=== PATIENT | female | born 1940 | race Hispanic/Latino ===

== ENCOUNTER 2018-05-11 17:28 | Inpatient (IN) | payer MEDICARE ==
[~2018-05-11] VITALS: Ht 165.1 cm; Wt 80.3 kg
[2018-05-11 20:27] LABS: BASOPHILS # (AUTO) 0.1 (0.0-0.1); BASOPHILS % 0.7 % (0.0-1.0); EOSINOPHILS # (AUTO) 0.1 (0.0-0.4); EOSINOPHILS % 1.2 % (0.0-6.0); HEMATOCRIT 34.2 % (34.2-44.1); HEMOGLOBIN 11.7 g/dL (12.0-16.0); LYMPHOCYTES # (AUTO) 2.1 (1.0-3.2); LYMPHOCYTES % 21.1 % (18.0-39.1); MEAN CORPUSCULAR HEMOGLOBIN 30.8 pg (28-32); MEAN CORPUSCULAR HGB CONC 34.2 g/dL (31-35); MONOCYTES # (AUTO) 0.6 (0.2-0.8); MONOCYTES % 6.2 % (4.4-11.3); NEUTROPHILS # (AUTO) 6.9 (2.1-6.9); NEUTROPHILS % 70.3 % (38.7-80.0); PLATELET COUNT 240 x10e3/uL (140-360); RED CELL DISTRIBUTION WIDTH 12.2 % (11.7-14.4)
[2018-05-11 20:29] LABS: BILIRUBIN,URINE NEGATIVE (NEGATIVE); CLARITY,URINE CLEAR (CLEAR); COLOR,URINE YELLOW (YELLOW); KETONES,URINE NEGATIVE (NEGATIVE); LEUKOCYTE ESTERASE ,URINE 1+ (NEGATIVE); NITRITE,URINE POSITIVE (NEGATIVE); PROTEIN,URINE DIPSTICK NEGATIVE (NEGATIVE); URINE UROBILINOGEN 0.2 mg/dL (0.2 - 1)
[2018-05-11 20:37] LABS: INR 1.03; PARTIAL THROMBOPLASTIN TIME 27.9 seconds (23.8-35.5); PROTHROMBIN TIME 12.7 seconds (11.9-14.5)
[2018-05-11 20:45] LABS: BACTERIA,URINE MANY /HPF; EPITHELIAL CELLS,URINE FEW /LPF; MUCUS,URINE FEW (RARE); RBC,URINE 0-5 /HPF (0-5)
[2018-05-11 20:46] LABS: ALBUMIN 3.8 g/dL (3.5-5.0); ALBUMIN/GLOBULIN RATIO 1.2 (0.8-2.0); ANION GAP 16.2 mmol/L (8-16); CALCIUM 10.3 mg/dL (8.4-10.2); CREATININE, SERUM 1.33 mg/dL (0.57-1.11)
[2018-05-11 20:49] LABS: POTASSIUM 5.2 mmol/L (3.5-5.1)
[2018-05-11] MEDS ORDERED: SODIUM CHLORIDE 0.9% 1000ML 1,000 ML IV STA (20:52)
[2018-05-11 20:53] LABS: CREATINE KINASE MB 2.6 ng/mL (0-5.0)
[2018-05-11] MEDS ORDERED: INSULIN REGULAR, HUMAN 100 UNIT/1 ML 3ML VIAL SQ ONE (21:00)
[2018-05-11] MEDS ORDERED: HEPARIN SOD (PORCINE) 5,000 UNIT/ML VIAL IV ONE ×2 (22:00→22:15)
[2018-05-11] MEDS ORDERED: LOSARTAN-HCTZ1 EAC1 PO (22:04)
[2018-05-11] MEDS ORDERED: METOPROLOL SUC100 MG PO (22:04)
[2018-05-11] MEDS ORDERED: LANTUS 3ML100 UNITS/ SC (22:04)
[2018-05-11] MEDS ORDERED: METFORMIN HCL500 MG PO (22:04)
[2018-05-11] MEDS ORDERED: GLIPIZIDE ER10 MG PO (22:04)
[2018-05-11] MEDS ORDERED: HEPARIN 25,000U/0.45% NS 250ML 250 ML ONE (22:14)
[2018-05-11] MEDS ORDERED: DEXTROSE 50% SYRINGE 50 ML IV PRN (22:15)
[2018-05-11] MEDS ORDERED: ONDANSETRON HCL INJ 2 MG/ML VIAL IV PRN (22:15)
[2018-05-11] MEDS: CEFTRIAXONE SOD 1 GM VIAL IV SCH (22:19)
[2018-05-11] MEDS: HEPARIN 25,000U/0.45% NS 250ML 1,100 UNIT in SODIUM CHLORIDE 0.9% 250ML 0 ML IV SCH (22:19)
[2018-05-11] MEDS: SODIUM CHLORIDE 0.9% 1000ML 1,000 ML IV SCH (23:41)
[2018-05-12] VITALS (7 sets, daily range): BP systolic 140–178; BP diastolic 72–108
[2018-05-12 04:00] LABS: BASOPHILS # (AUTO) 0.1 (0.0-0.1); BASOPHILS % 0.6 % (0.0-1.0); EOSINOPHILS # (AUTO) 0.2 (0.0-0.4); EOSINOPHILS % 2.1 % (0.0-6.0); HEMATOCRIT 29.4 % (34.2-44.1); LYMPHOCYTES # (AUTO) 2.4 (1.0-3.2); MEAN CORPUSCULAR HEMOGLOBIN 30.6 pg (28-32); MEAN CORPUSCULAR VOLUME 89.9 fL (81-99); MONOCYTES # (AUTO) 0.6 (0.2-0.8); MONOCYTES % 6.6 % (4.4-11.3); NEUTROPHILS # (AUTO) 5.5 (2.1-6.9); NEUTROPHILS % 63.4 % (38.7-80.0); PLATELET COUNT 198 x10e3/uL (140-360); RED BLOOD COUNT 3.27 x10e6/uL (3.6-5.1); RED CELL DISTRIBUTION WIDTH 12.2 % (11.7-14.4)
[2018-05-12 04:15] LABS: ALBUMIN/GLOBULIN RATIO 1.2 (0.8-2.0); ANION GAP 11.2 mmol/L (8-16); CALCIUM 9.4 mg/dL (8.4-10.2); CREATININE, SERUM 0.98 mg/dL (0.57-1.11); POTASSIUM 4.2 mmol/L (3.5-5.1)
[2018-05-12] MEDS: INSULIN REGULAR, HUMAN 100 UNIT/1 ML 3ML VIAL SQ SCH ×4 (08:13→21:00)
[2018-05-12] MEDS: SODIUM CHLORIDE 0.9% 1000ML 1,000 ML IV SCH ×2 (09:43→20:25)
[2018-05-12] MEDS ORDERED: HYDRALAZINE HCL 20 MG/ML VIAL IV PRN (12:15)
[2018-05-12] MEDS ORDERED: ONDANSETRON HCL INJ 2 MG/ML VIAL IV PRN (12:45)
--- NOTE | 2018-05-12 16:35 | History and Physical ---
CHIEF COMPLAINT: Right foot pain and cold sensation. HISTORY OF PRESENT ILLNESS: A 78-year-old female with past medical history of type 2 diabetes, uncontrolled and hypertension who presents to the ED with complaints of a one month history of right lower foot pain with numbness and cold sensation. Patient reports this has been ongoing for the last one month, but yesterday she was severe pain, began to dry and came into the ED for further evaluation. Patient denies any history of any smoking in the past. She denies any history of atrial fibrillation as well. Patient also has been having some increased polydipsia and polyuria at home and has been having uncontrolled type 2 diabetes. The patient is very noncompliant with her insulin as well. Patient has never experienced any kind of right lower extremity pain like this in the past. Patient seen and evaluated at bedside on the medical floor in the ER, currently doing well with no other complaints. She is currently on heparin drip. Cardiology has been consulted for possibly lower extremity angiogram for further intervention. REVIEW OF SYSTEMS: Pertinent positives: Right lower extremity foot pain with cold sensation and numbness. Polydipsia and urinary frequency. Pertinent negatives: Denies any chest pain, palpitations, nausea, vomiting, diarrhea, dysuria, hematuria, frequency, urgency, lightheadedness, dizziness, abdominal pain, headache, shortness of breath, fever, cough, congestion or any other complaints. The rest of 14 point review of systems is reviewed with the patient and are negative. ALLERGIES: SITAGLIPTIN. HOME MEDICATIONS: Metformin 1 tab p.o. b.i.d., glipizide 1 tab p.o. b.i.d., losartan/hydrochlorothiazide 100/25 mg 1 tab q. daily. Lantus 15 units subcutaneously daily, metoprolol XL 100 mg daily. PAST MEDICAL HISTORY: Type 2 diabetes, hypertension, morbidly obese. PAST SURGICAL HISTORY: Reports none. FAMILY HISTORY: Hypertension and diabetes. SOCIAL HISTORY: No drugs, no alcohol and does not smoke. Lives with daughter. No other issues. PHYSICAL EXAM: VITAL SIGNS: Temperature is 98.4, pulse 79, respiratory rate 18, blood pressure 139/66, pulse ox 99% on room air. GENERAL: Not in acute distress, alert and oriented times 3, cooperative on examination. HEENT: Head is normocephalic, atraumatic. Eyes: Pupils are equal and reactive to light bilaterally. Extraocular movements intact bilaterally. NECK: Supple with good range of motion throughout. No evidence of any erythema or exudate in the posterior pharynx. Has poor dentition. PULMONARY: Clear to auscultation bilaterally. No wheezing, no rales and no rhonchi appreciated. CARDIOVASCULAR: Positive S1 and S2, no murmurs, rubs or gallops appreciated. ABDOMEN: Soft, nondistended and nontender to palpation. Bowel sounds present. MUSCULOSKELETAL: Strength is 5/5 throughout. No visible edema on examination and no weakness appreciated. NEUROLOGIC: Cranial nerves II-XII grossly intact. No evidence of any neurologic deficits on exam. SKIN: Intact. Warm to touch. Good cap refill. PSYCHIATRIC: Normal affect and mood. EXTREMITIES: The right lower extremity has some cold sensation to the right foot. Dorsalis pedis pulses seem to be much decreased, but currently she complains of very little pain to the right foot. LABORATORY DATA: Lab findings show white count of 8.7, hemoglobin of 10, hematocrit 29, platelets of 198,000. Coagulation PT 12, INR 1, PTT 27.9. Chemistry: Sodium 139, potassium 4.2, chloride 107, bicarb 25, anion gap of 11. BUN is 13. Creatinine 0.9. Glucose on admission was 434 and now 163. Calcium is 9.4, bilirubin 0.6. AST 12, ALT 7. Alkaline phosphorus 105. Troponin was negative. Total protein 5.5. Albumin is 3. Urinalysis showed many bacteria, 11 to 20 WBCs and positive nitrates. MICROBIOLOGY: None. IMAGING STUDIES: Lower extremity venous Doppler and lower extremity arterial Doppler are pending, review by cardiology. ASSESSMENT AND PLAN: 1. Right foot numbness with cold sensation, concern for arterial clot.-venous and arterial Dopplers are pending, heparin drip, cardiology consulted. Patient will likely need lower extremity angiogram, possibly intervention for further evaluation of her arterial clot. It seems that the patient has more of an arterial clot than an actual venous clot based on the symptoms and the chief complaint the patient has. 1. Urinary tract infection: Continue with IV Rocephin. Urine culture was not sent to the lab. Will discuss with nursing staff. 2. Uncontrolled type 2 diabetes: Get an A1c common, insulin sliding scale, put on Lantus 10 units subcutaneously at bedtime. 3. Hypertension. Currently her blood pressure is stable at 139/66. Continue with same home medications, p.r.n. hydralazine. 4. Prophylaxis, heparin drip. 5. Fluids, electrolytes and nutrients: No IV fluids indicated. Diabetic diet. DISPOSITION: Inpatient. Cardiology consulted for evaluation of the lower extremity, possibly needing angiogram. Job#: [id number] GH
[2018-05-12] MEDS ORDERED: INSULIN DETEMIR 100 UNIT/ML PEN SQ SCH (21:00)
[2018-05-12] MEDS: CEFTRIAXONE SOD 1 GM VIAL IV SCH (21:18)
--- NOTE | 2018-05-12 23:13 | Consultation ---
DATE OF CONSULTATION: May 12, 2018 CARDIOLOGY CONSULTATION REQUESTING PHYSICIAN: Dr. Valdivia. REASON FOR CONSULTATION: Peripheral arterial disease. HISTORY OF PRESENT ILLNESS: This is a 78-year-old woman with history of diabetes mellitus, hypertension, and chronic kidney disease who presents with right lower extremity pain. The patient reports she has been having pain in her right lower extremity for the last month, with worsening in the last few weeks. She endorses symptoms of claudication in her right leg with cramping in her calf with ambulation of approximately 20 feet. Due to pain and discoloration in her right foot, patient presented to [facility] ER for further evaluation. She denied any chest pain, shortness of breath, palpitations, orthopnea, or PND. REVIEW OF SYSTEMS: Negative except as per HPI. PAST MEDICAL HISTORY 1. Diabetes mellitus, uncontrolled. 2. Hypertension. 3. Chronic kidney disease. PAST SURGICAL HISTORY: Denies. ALLERGIES: PLEASE SEE EMR. MEDICATIONS: Please see medication list. SOCIAL HISTORY: Denies tobacco, alcohol, or illicit drugs. FAMILY HISTORY: Noncontributory. PHYSICAL EXAMINATION VITAL SIGNS: Temperature 98.8 degrees, pulse 79, respiratory rate 16, blood pressure 164/72, and oxygen saturation 94% on room air. GENERAL: Obese woman, well developed, well nourished, in no acute distress. HEENT: Normocephalic, atraumatic. Pupils equal, no scleral icterus. NECK: Supple. No thyromegaly or cervical lymphadenopathy. No carotid bruits. LUNGS: Clear to auscultation bilaterally. No wheezes or crackles. CARDIOVASCULAR: Normal rate, regular rhythm. No murmur. Normal S1 and S2. ABDOMEN: Soft, nontender. EXTREMITIES: No edema. Cool to palpation in the toes of the right foot with discoloration noted of the plantar surface of the right foot. NEURO: Nonfocal exam. LABS: WBC 8.7, hemoglobin 10, hematocrit 29.4, and platelets 198,000. Sodium 139, potassium 4.2, chloride 107, CO2 of 25, BUN 32, and creatinine 0.98. IMPRESSIONS 1. Chronic limb ischemia of the right lower extremity. 2. Peripheral arterial disease suggested by noninvasive Doppler evaluation. 3. Diabetes mellitus. 4. Hypertension, uncontrolled. 5. Wwstl-ig-varcezi kidney disease. 6. Abnormal urinalysis suggestive of urinary tract infection. RECOMMENDATIONS: Agree with heparin drip. Continue current cardiac medications. Patient will need peripheral angiogram for further evaluation of her right lower extremity; however, given patient's chronic kidney disease, patient will need renal consultation and discussion of the risk of contrast-induced nephropathy prior to proceeding. I recommended nephrology input. Antibiotics per primary service. Frequent vascular checks in the meantime. Thank you for this consult. We will continue to follow. Job#: [id number] CF MTDTrace
[2018-05-13] VITALS (7 sets, daily range): BP systolic 122–140; BP diastolic 57–65
[2018-05-13] MEDS: ACETAMINOPHEN 325 MG TAB PO PRN ×2 (00:33→23:15)
[2018-05-13] MEDS ORDERED: HEPARIN 25,000U/0.45% NS 250ML 250 ML ONE (01:45)
[2018-05-13] MEDS: HEPARIN 25,000U/0.45% NS 250ML 1,100 UNIT in SODIUM CHLORIDE 0.9% 250ML 0 ML IV SCH ×2 (01:50→22:15)
[2018-05-13] MEDS: SODIUM CHLORIDE 0.9% 1000ML 1,000 ML IV SCH (04:32)
[2018-05-13 06:11] LABS: BASOPHILS # (AUTO) 0.1 (0.0-0.1); BASOPHILS % 0.6 % (0.0-1.0); EOSINOPHILS # (AUTO) 0.2 (0.0-0.4); HEMATOCRIT 28.4 % (34.2-44.1); HEMOGLOBIN 9.5 g/dL (12.0-16.0); LYMPHOCYTES # (AUTO) 2.3 (1.0-3.2); LYMPHOCYTES % 25.2 % (18.0-39.1); MEAN CORPUSCULAR HGB CONC 33.5 g/dL (31-35); MEAN CORPUSCULAR VOLUME 92.8 fL (81-99); MONOCYTES # (AUTO) 0.6 (0.2-0.8); MONOCYTES % 6.4 % (4.4-11.3); NEUTROPHILS # (AUTO) 5.8 (2.1-6.9); NEUTROPHILS % 65.2 % (38.7-80.0); PLATELET COUNT 202 x10e3/uL (140-360); RED BLOOD COUNT 3.06 x10e6/uL (3.6-5.1); RED CELL DISTRIBUTION WIDTH 12.4 % (11.7-14.4)
[2018-05-13 06:32] LABS: ANION GAP 11.2 mmol/L (8-16); BLOOD UREA NITROGEN 21 mg/dL (7-26); BUN/CREATININE RATIO 25 (6-25); CALCIUM 8.8 mg/dL (8.4-10.2); CARBON DIOXIDE 23 mmol/L (22-29); CHLORIDE 107 mmol/L (98-107); CREATININE, SERUM 0.84 mg/dL (0.57-1.11); EST GLOMERULAR FILTRATION RATE > 60 ML/MIN (60-); GLUCOSE 171 mg/dL (74-118); POTASSIUM 4.2 mmol/L (3.5-5.1); SODIUM 137 mmol/L (136-145)
[2018-05-13] MEDS: INSULIN REGULAR, HUMAN 100 UNIT/1 ML 3ML VIAL SQ SCH ×4 (08:00→21:50)
[2018-05-13] MEDS: TOPROL PO SCH (08:32)
[2018-05-13] MEDS: INSULIN DETEMIR 100 UNIT/ML PEN SQ SCH ×2 (11:00→21:51)
--- NOTE | 2018-05-13 16:54 | Progress Note ---
DATE: May 13, 2018 CARDIOLOGY PROGRESS NOTE SUBJECTIVE: The patient denies chest pain or shortness of breath. She denies any pain in her right foot. OBJECTIVE VITAL SIGNS: Temperature 98 degrees, pulse 95, respiratory rate 20, blood pressure 140/59, oxygen saturation 96%. GENERAL: An elderly woman in no acute distress, awake and alert. LUNGS: Clear to auscultation bilaterally. No wheezes or crackles. CARDIOVASCULAR: Normal rate, regular rhythm. No murmur. Normal S1 and S2. ABDOMEN: Soft, nontender. EXTREMITIES: No edema. Discoloration noted on the toes as well as plantar surface of the right foot. Pulses are dopplerable. CARDIAC MEDICATIONS: 1. Metoprolol succinate 100 mg p.o. daily. 2. Heparin drip. LABS: WBC 8.94, hemoglobin 9.5, hematocrit 28.4, platelets 202,000, sodium 137, potassium 4.2, chloride 107, CO2 of 23, BUN 21, creatinine 0.84. TELEMETRY: Normal sinus rhythm. IMPRESSION 1. Chronic limb ischemia of the right lower extremity. 2. Peripheral arterial disease suggested by noninvasive Doppler evaluation. 3. Diabetes mellitus. 4. Hypertension, improved. 5. Cfmqz-zu-fgpfhoe kidney disease, improved. 6. Abnormal urinalysis suggestive of urinary tract infection. RECOMMENDATIONS: Continued heparin drip. Add low-dose aspirin. Continue current cardiac medication otherwise. Plan for peripheral angiogram in the morning. Extensive discussion was held with the patient and her daughter at bedside regarding the risks and benefits of peripheral angiogram including risk of contrast-induced nephropathy. Antibiotics per primary service. Continue frequent vascular checks. Thank you for this consult. We will continue to follow. Job#: [id number] WALLY
[2018-05-13] MEDS: CEFTRIAXONE SOD 1 GM VIAL IV SCH (21:53)
[2018-05-14] VITALS (11 sets, daily range): BP systolic 128–161; BP diastolic 60–90
[2018-05-14] MEDS: SODIUM CHLORIDE 0.9% 1000ML 1,000 ML IV SCH ×3 (03:35→18:57)
[2018-05-14 04:53] LABS: BASOPHILS # (AUTO) 0.1 (0.0-0.1); BASOPHILS % 0.8 % (0.0-1.0); EOSINOPHILS # (AUTO) 0.2 (0.0-0.4); EOSINOPHILS % 2.6 % (0.0-6.0); HEMATOCRIT 28.9 % (34.2-44.1); HEMOGLOBIN 9.7 g/dL (12.0-16.0); LYMPHOCYTES # (AUTO) 2.2 (1.0-3.2); LYMPHOCYTES % 25.2 % (18.0-39.1); MEAN CORPUSCULAR HEMOGLOBIN 30.9 pg (28-32); MEAN CORPUSCULAR HGB CONC 33.6 g/dL (31-35); MONOCYTES # (AUTO) 0.6 (0.2-0.8); NEUTROPHILS # (AUTO) 5.6 (2.1-6.9); NEUTROPHILS % 63.6 % (38.7-80.0); PLATELET COUNT 202 x10e3/uL (140-360); RED BLOOD COUNT 3.14 x10e6/uL (3.6-5.1); RED CELL DISTRIBUTION WIDTH 12.5 % (11.7-14.4)
[2018-05-14 05:12] LABS: ANION GAP 11.2 mmol/L (8-16); BLOOD UREA NITROGEN 18 mg/dL (7-26); BUN/CREATININE RATIO 21 (6-25); CALCIUM 8.9 mg/dL (8.4-10.2); CARBON DIOXIDE 21 mmol/L (22-29); CHLORIDE 110 mmol/L (98-107); CREATININE, SERUM 0.86 mg/dL (0.57-1.11); EST GLOMERULAR FILTRATION RATE > 60 ML/MIN (60-); GLUCOSE 251 mg/dL (74-118); POTASSIUM 4.2 mmol/L (3.5-5.1); SODIUM 138 mmol/L (136-145)
[2018-05-14] MEDS: INSULIN REGULAR, HUMAN 100 UNIT/1 ML 3ML VIAL SQ SCH ×4 (07:30→21:00)
[2018-05-14] MEDS: TOPROL PO SCH (08:45)
[2018-05-14] MEDS: ASPIRIN 81 MG ENTERIC COATED PO SCH (08:45)
[2018-05-14] MEDS: INSULIN DETEMIR 100 UNIT/ML PEN SQ SCH ×2 (08:47→21:59)
[2018-05-14] MEDS ORDERED: FENTANYL CITRATE/PF 100MCG/2 ML INJ ONE (13:53)
[2018-05-14] MEDS ORDERED: MIDAZOLAM HCL 2 MG/2 ML VIAL ONE (13:53)
[2018-05-14] MEDS ORDERED: LIDOCAINE HCL 2% LOCAL 20 ML VIAL ONE (13:53)
[2018-05-14] MEDS ORDERED: SODIUM CHLORIDE 0.9% 1000ML 1,000 ML ONE ×2 (13:54→14:53)
[2018-05-14] MEDS ORDERED: IOPAMIDOL 300MG/ML 100 ML INFUS..BTL IV ONE (13:54)
[2018-05-14] MEDS ORDERED: HEPARIN SOD/SOD CHLORIDE 2,000 ML ONE (13:56)
[2018-05-14] MEDS ORDERED: HEPARIN SOD (PORCINE) 1000 UNIT/ML 30ML ONE (14:40)
[2018-05-14] MEDS ORDERED: NITROGLYCERIN/D5W 200 MCG/ML 250 ML ONE (14:53)
[2018-05-14] MEDS ORDERED: VERAPAMIL HCL 2.5 MG/ML 2 ML VIAL ONE (14:54)
[2018-05-14] MEDS ORDERED: CLOPIDOGREL BISULFATE 75 MG TAB ONE (15:51)
[2018-05-14] MEDS ORDERED: ASPIRIN 325 MG TAB ONE (15:51)
[2018-05-14] MEDS ORDERED: ONDANSETRON HCL INJ 2 MG/ML VIAL ONE (16:35)
--- NOTE | 2018-05-14 17:53 | Progress Note ---
DATE: May 14, 2018 CARDIOLOGY PROGRESS NOTE SUBJECTIVE: Patient underwent peripheral angiography and intervention to her right distal SFA by me earlier today. OBJECTIVE VITAL SIGNS: Temperature 98.4, pulse 64, respiratory rate 18, blood pressure 128/60, saturating 100% on room air. GENERAL: Elderly female, well developed. CARDIOVASCULAR: Regular rate and rhythm. No murmur, rubs, or gallops. Palpable carotid pulses. Palpable radial pulses. Palpable femoral pulses. Postprocedure, she has a bounding palpable right dorsalis pedis pulse and a faint, but palpable left dorsalis pedis pulse. LUNGS: No respiratory distress. Clear to auscultation bilaterally. ABDOMEN: Soft, nontender, nondistended. NEURO AND PSYCH: Alert and oriented to person, place, and time. Normal affect. MEDICATIONS: Reviewed. LABORATORY DATA: Reviewed. IMAGING FINDINGS: Reviewed. Please see my procedure report for her peripheral angiography and intervention done today for details. TELEMETRY DATA: Reviewed, notable for normal sinus rhythm. ASSESSMENT 1. Critical limb ischemia. 2. Peripheral arterial disease. 3. Diabetes. 4. Hypertension. 5. Hwzva-em-sfypmwj acute kidney injury on chronic kidney disease. 6. Urinary tract infection. RECOMMENDATIONS: Successful BELLY DANCER of her right SFA. Okay to discontinue heparin. Continue aspirin 81 mg daily for life and Plavix 75 mg daily for 6 weeks. Continue optimal medical therapy and risk factor control. If there are no complications overnight, patient is okay to be discharged in the morning from cardiovascular standpoint. Patient is to follow up with me in clinic in 2 weeks. Thank you for this consult. We will continue to follow. Job#: [id number] DEONDRE
--- NOTE | 2018-05-14 19:55 | Operative Report ---
DATE OF PROCEDURE: May 14, 2018 PROCEDURE: Cardiac catheterization. INDICATIONS: Critical limb ischemia and rest pain. PRE-SEDATION ASSESSMENT: Medical history, social history and previous experience with anesthesia were viewed as documented in the preoperative medical record. Results of relevant diagnostic studies were reviewed. Plan, choice of anesthesia, risks, complications, benefits and alternatives discussed. Patient deemed appropriate candidate for planned choice of anesthesia. CONSENT: The benefits, risks, complications and alternatives to the procedure were discussed with the patient and informed consent was obtained from the patient and her daughter prior to the procedure. MEDICATIONS: Please see nursing notes for medications administered during the procedure. PROCEDURE: The patient was brought to the cardiac catheterization laboratory in a fasting state. Left groin was prepped and draped in a sterile fashion and 1% lidocaine was used to infiltrate the left groin over the left common femoral artery. A 6-[place] Citizen sheath was placed in the left common femoral artery using ultrasound guidance and micropuncture needle. Using the modified Seldinger technique, abdominal aortogram was performed using a 5-[place] Citizen Omni flush catheter placed in the distal abdominal aorta below the renal arteries. A Buckeye Advantage wire was then used to go up and over into the contralateral iliac artery and an Omni flush catheter was advanced over the Buckeye Advantage wire into the distal common femoral artery on the contralateral side. Wire was removed and peripheral angiography of the right lower extremity was performed with digital subtraction and runoff as needed to visualize the lesion. The following lesions were deemed appropriate for intervention: A 90% heavily calcified lesion of the distal SFA and popliteal. For intervention of the above lesion, a Buckeye Advantage wire was advanced to the contralateral side through the Omni flush catheter previously placed in the SFA. The Omni flush catheter was removed and the 6-[place] Citizen short sheath was exchanged for a 45 cm Destination sheath which was placed into the contralateral external iliac artery using a 0.035 inch Seeker support catheter and 0.035 inch Buckeye Advantage wire. We were able to cross the lesion successfully. We then performed angiography of the right lower extremity below the knee to visualize the outflow beyond the lesion. The patient had a good 1 vessel runoff of the AT all the way to the toes. Decision was made to proceed with atherectomy and drug coated balloon treatment of the SFA popliteal lesion. A 0.014 inch Whisper wire was placed in the anterior tibial artery all the way above the level of the ankle. Using 0.014 inch Seeker catheter, we exchanged the Whisper wire for wiper wire. Atherectomy of the distal SFA lesion was performed using 1.5 solid bur CSI device. INTERNIST of the SFA lesion was performed using a Lutonix 5 x 40 mm balloon at 4 atmospheres, deployed for 3 minutes. This provided an excellent result with palpable pedal pulse on the left lower extremity and a brisk 1 vessel runoff to the toes. The Destination sheath was exchanged for short 6-[place] Citizen sheath using the regular J wire. Peripheral angiogram with runoff of the left lower extremity was performed by injecting contrast through the 6-[place] Citizen short sheath. The arteriotomy was closed with Provide vascular closure device. There were no immediate complications. Patient tolerated the procedure well. Estimated blood loss approximately 50 mL FINDINGS: Right common iliac artery with luminal irregularities only. Right external iliac artery no significant PAD. Right common femoral artery with no significant PAD. Right superficial femoral artery, the proximal portion with luminal irregularities only. There is 90% heavily calcified lesion of the distal right SFA going into the P1 segment of the right popliteal artery. Right anterior tibial is a large vessel. It is patent with some mild to moderate plaquing only all the way to the foot. Right tibial peroneal trunk is no significant PAD. The right posterior tibial artery is COAT FITTER in the proximal portion. Right peroneal artery is COAT FITTER in the proximal portion with AV fistulization into the venous system at the level of mid calf. The left common iliac artery with no significant PAD. Left external iliac artery no significant PAD. The left common femoral artery with no significant PAD. The left SFA superficial femoral artery with mild to moderate diffuse plaquing and heavy calcification. Left popliteal artery with mild to moderate plaquing. Left anterior tibial artery patent in the proximal portion. Distal runoff not well visualized. The left TP trunk no significant PAD. The left posterior tibial artery COAT FITTER in the proximal portion. Left peroneal artery COAT FITTER in the proximal portion. COMPLICATIONS: None. SPECIMEN REMOVED: None. IMPLANTS: Provide vascular closure. ESTIMATED BLOOD LOSS: 50 mL. RECOMMENDATIONS: 1. Unusual post PCI care with 6 hours of bedrest. 2. Continue optimal medical therapy and aspirin 81 mg daily for life. Plavix 75 mg daily for 6 weeks after the procedure. 3. Call the office for followup in 2 weeks post procedure. Job#: [id number] GH
[2018-05-14] MEDS ORDERED: ACETAMINOPHEN 325 MG/10 ML UDC PO PRN (20:15)
[2018-05-14] MEDS: CEFTRIAXONE SOD 1 GM VIAL IV SCH (21:58)
[2018-05-15] VITALS (7 sets, daily range): BP systolic 105–152; BP diastolic 51–72
[2018-05-15] MEDS: SODIUM CHLORIDE 0.9% 1000ML 1,000 ML IV SCH ×4 (03:51→23:12)
[2018-05-15 04:45] LABS: BASOPHILS # (AUTO) 0.1 (0.0-0.1); BASOPHILS % 0.6 % (0.0-1.0); EOSINOPHILS # (AUTO) 0.1 (0.0-0.4); EOSINOPHILS % 1.3 % (0.0-6.0); HEMATOCRIT 27.1 % (34.2-44.1); MEAN CORPUSCULAR HEMOGLOBIN 30.7 pg (28-32); MEAN CORPUSCULAR HGB CONC 33.2 g/dL (31-35); MEAN CORPUSCULAR VOLUME 92.5 fL (81-99); MONOCYTES # (AUTO) 0.9 (0.2-0.8); MONOCYTES % 8.3 % (4.4-11.3); NEUTROPHILS # (AUTO) 7.3 (2.1-6.9); NEUTROPHILS % 70.1 % (38.7-80.0); PLATELET COUNT 200 x10e3/uL (140-360); RED BLOOD COUNT 2.93 x10e6/uL (3.6-5.1); RED CELL DISTRIBUTION WIDTH 12.5 % (11.7-14.4)
[2018-05-15 05:07] LABS: ANION GAP 11.8 mmol/L (8-16); BLOOD UREA NITROGEN 16 mg/dL (7-26); BUN/CREATININE RATIO 21 (6-25); CALCIUM 8.9 mg/dL (8.4-10.2); CARBON DIOXIDE 22 mmol/L (22-29); CHLORIDE 113 mmol/L (98-107); CREATININE, SERUM 0.78 mg/dL (0.57-1.11); EST GLOMERULAR FILTRATION RATE > 60 ML/MIN (60-); GLUCOSE 78 mg/dL (74-118); POTASSIUM 3.8 mmol/L (3.5-5.1); SODIUM 143 mmol/L (136-145)
[2018-05-15] MEDS: INSULIN REGULAR, HUMAN 100 UNIT/1 ML 3ML VIAL SQ SCH ×4 (07:30→21:00)
[2018-05-15] MEDS: INSULIN DETEMIR 100 UNIT/ML PEN SQ SCH ×2 (08:12→21:17)
[2018-05-15] MEDS: ASPIRIN 81 MG ENTERIC COATED PO SCH (08:24)
[2018-05-15] MEDS: TOPROL PO SCH (08:25)
[2018-05-15] MEDS: CLOPIDOGREL BISULFATE 75 MG TAB PO SCH (12:45)
--- NOTE | 2018-05-15 13:21 | Progress Note ---
DATE: May 15, 2018 CARDIOLOGY PROGRESS NOTE SUBJECTIVE: Patient denies chest pain or shortness of breath. She continues to have some left foot pain. OBJECTIVE VITAL SIGNS: Temperature 96.5 degrees, pulse 69, respiratory rate 20, blood pressure 152/72, oxygen saturation 98% on room air. GENERAL: Awake, alert, in no acute distress. LUNGS: Clear to auscultation bilaterally. No wheezes or crackles. CARDIOVASCULAR: Normal rate, regular rhythm. No murmur. Normal S1 and S2. ABDOMEN: Soft, nontender. EXTREMITIES: Trace edema. Left groin without hematoma or bruit. CARDIAC MEDICATIONS 1. Metoprolol succinate 100 mg p.o. daily. 2. Aspirin 81 mg p.o. daily. LABORATORY DATA: WBC 10.4, hemoglobin 9, hematocrit 27.1, platelets 200. Sodium 143, potassium 3.8, chloride 113, CO2 of 22, BUN 16, creatinine 0.78. Peripheral angiogram with 98% heavily calcified lesion in the distal SFA going to P1 segment of the right popliteal artery and STAIN SPRAYER of the right posterior tibial artery, status post atherectomy and drug-coated balloon angioplasty of the SFA popliteal lesion. TELEMETRY: Normal sinus rhythm. IMPRESSION 1. Critical limb ischemia. 2. Peripheral arterial disease, status post percutaneous transluminal angioplasty of the right superficial femoral artery. 3. Diabetes mellitus. 4. Hypertension. 5. Uqulh-hl-kjkbcub kidney disease, improved. 6. Urinary tract infection. RECOMMENDATIONS: Start Plavix. Patient will need dual-antiplatelet therapy for 6 weeks and aspirin for life. Continue current cardiac medications otherwise. Thank you for this consult. We will continue to follow. Job#: [id number] VAS MTDD
--- NOTE | 2018-05-15 16:33 | Discharge Summary ---
FINAL DISCHARGE DIAGNOSES 1. Right lower extremity critical limb ischemia, status post percutaneous transluminal angioplasty of the right superficial femoral artery. 2. Uncontrolled type 2 diabetes. 3. Hypertension. 4. Acute kidney injury on chronic kidney disease. 5. Urinary tract infection. CONSULTANTS: Cardiology. VITAL SIGNS: Temperature is 96.5, pulse 69, respiratory rate is 20, blood pressure 152/72, pulse ox 98% on room air. LAB FINDINGS: Show white count is 10.4, hemoglobin 9, hematocrit 27, and platelets 200,000. Coagulation: INR was 1. Chemistry: Sodium 142, potassium 3.8, chloride 113, bicarbonate 22, anion gap of 11, BUN 16, creatinine 0.7, glucose 78. Calcium 8.9. Total bilirubin is 0.6. AST is 12 and ALT is 7. Troponin was 0.002. Albumin was 3. Urinalysis showed many bacteria, 11-20 wbcs, positive nitrites, and 3+ glucose. IMAGING STUDIES: Bilateral lower extremity venous Doppler shows no evidence of DVT. We got bilateral arterial Doppler that shows concerns of right lower extremity stenosis in the MASTER BREWER and SAMI. The left lower extremity shows without any arterial stenosis. HOSPITAL COURSE: This is a 78-year-old female who comes into the ED with complaints of right lower extremity numbness and cold sensation ongoing for the last several weeks. Patient was admitted and cardiology was consulted. Patient had a status post right lower extremity angiogram performed by cardiology with status post percutaneous transluminal angioplasty of the right superficial femoral artery performed. Cardiology recommends Plavix and aspirin and dual antiplatelet therapy. Patient did extremely well with no other complaints. According to the reports, the patient had a 98% heavily calcified lesion in the distal SFA, as well as the right popliteal artery, which required arterectomy and drug-coated balloon angioplasty in the SFA popliteal lesion. Patient's flow was much improved with no other complaints. The patient has been cleared by cardiology for discharge home. Patient also had uncontrolled type 2 diabetes with an elevated A1c greater than 10. Patient's Lantus was increased to 15 units subcutaneous twice daily and discontinue metformin, as well as glipizide. Start on pre-meal insulin. Patient also presumed to have underlying UTI and was on IV antibiotics with much improvement. Urine culture was not sent by the ER. Patient will be discharged on no antibiotics. Her blood pressure was well managed and controlled while in the hospital. She did have acute kidney injury on CKD, which improved prior to discharge home. It was likely to be underlying prerenal azotemic for the acute kidney injury. On the day of discharge, vital signs stable, labs were stable and the patient was seen and evaluated. Noted to have any other issues and no other complaints. Patient verbalized understanding and agrees to plan of care. Will follow up accordingly as an outpatient with her primary care physician in 1 week and foreign clerk in 2 weeks. MEDICATIONS: See med reconciliation form, including Plavix 75 mg daily, aspirin 81 mg daily. CONDITION: Stable. DISPOSITION: Home. DIET: Heart-healthy. FOLLOWUP: With PCP in 1 week and foreign clerk in 2 weeks. In the event of any worsening symptoms, the patient was advised to come to the ED for further evaluation. Discharge summary took greater than 35 minutes. STACIE MORRIS MD Job#: [id number] JUHI
[2018-05-15] MEDS ORDERED: LACTULOSE SYRUP 20 GM/30 ML UDC PO PRN (17:30)
[2018-05-15] MEDS ORDERED: LACTULOSE SYRUP 20 GM/30 ML UDC PO NR (17:30)
[2018-05-15] MEDS ORDERED: DOCUSATE SODIUM 100 MG CAP PO SCH (17:30)
[2018-05-15] MEDS: CEFTRIAXONE SOD 1 GM VIAL IV SCH (21:17)
[2018-05-16] VITALS (7 sets, daily range): BP systolic 112–140; BP diastolic 53–60
[2018-05-16 04:37] LABS: HEMATOCRIT 26.2 % (34.2-44.1); HEMOGLOBIN 8.9 g/dL (12.0-16.0); MEAN CORPUSCULAR HEMOGLOBIN 31.2 pg (28-32); MEAN CORPUSCULAR VOLUME 91.9 fL (81-99); PLATELET COUNT 200 x10e3/uL (140-360); RED BLOOD COUNT 2.85 x10e6/uL (3.6-5.1); RED CELL DISTRIBUTION WIDTH 12.6 % (11.7-14.4)
[2018-05-16 04:57] LABS: ANION GAP 11.7 mmol/L (8-16); BLOOD UREA NITROGEN 13 mg/dL (7-26); BUN/CREATININE RATIO 17 (6-25); CALCIUM 9.1 mg/dL (8.4-10.2); CARBON DIOXIDE 23 mmol/L (22-29); CHLORIDE 109 mmol/L (98-107); CREATININE, SERUM 0.77 mg/dL (0.57-1.11); EST GLOMERULAR FILTRATION RATE > 60 ML/MIN (60-); GLUCOSE 79 mg/dL (74-118); POTASSIUM 3.7 mmol/L (3.5-5.1); SODIUM 140 mmol/L (136-145)
[2018-05-16 06:51] LABS: EOSINOPHILS % (MANUAL) 4 % (0-7); LYMPHOCYTES % (MANUAL) 15 % (19-48); MONOCYTES % (MANUAL) 4 % (3.4-9.0); NEUTROPHILS % (MANUAL) 77 % (40-74); PLATELET ESTIMATE ADEQUATE
[2018-05-16 06:52] LABS: HYPOCHROMASIA SLIGHT; PLATELET MORPHOLOGY COMMENT NORMAL; RBC MORPHOLOGY COMMENT NORMAL; SMUDGE CELLS FEW
--- NOTE | 2018-05-16 07:20 | Consultation ---
DATE OF CONSULTATION: May 16, 2018 REASON FOR CONSULTATION: Right foot pain and swelling. HISTORY OF PRESENT ILLNESS: Thank you, Dr. Valdivia, for this consultation. This is a 78-year-old female. She presented to the hospital with a 4-week history of numbness, pain and cold sensation along her right foot. She does have a history of diabetes mellitus. She is very noncompliant. She was seen by cardiology. She underwent angiogram and angioplasty of the right superficial femoral artery. She was started on Plavix and aspirin. Her pain has been improving. PAST MEDICAL HISTORY: Diabetes mellitus, hypertension. SURGICAL HISTORY: Angiogram and angioplasty. ALLERGIES: SITAGLIPTIN. MEDICATIONS: MAR reviewed and include ceftriaxone, Plavix, aspirin. FAMILY HISTORY: Hypertension and diabetes mellitus. SOCIAL HISTORY: Lives with her daughter. No alcohol, tobacco or illicit drug use. REVIEW OF SYSTEMS: Generalized malaise and weakness. Pain and swelling along the right foot. No calf pain. No chest pain. No headache. All other systems reviewed and negative, except as above. PHYSICAL EXAMINATION VITAL SIGNS: Temperature 98.5, heart rate 73, respiratory rate 18, blood pressure 132/59. GENERAL: The patient is alert and oriented times 3 and in no acute distress. EXTREMITIES: Dorsalis pedis and posterior tibials are 1/4 and 3/4. Capillary refill time less than 5 seconds. Skin temperature warm to touch. Skin with atrophic changes. Skin was thin and shiny. Some discoloration of the 1st and 3rd toes. No necrosis. No open wounds. Still hypersensitivity along the distal aspect of the right forefoot. LABS: White blood cells 4.4, hemoglobin 8.9, hematocrit 26.2, and platelets 200,000. Sodium 140, potassium 3.7, chloride 109, bicarb 23, BUN 13, creatinine 0.77, glucose 79. Hemoglobin A1c was 12. ASSESSMENT 1. Cyanosis and ischemic changes, right foot. 2. Peripheral vascular disease: Status post angioplasty. 3. Diabetes mellitus with peripheral neuropathy and paresthesia. PLAN: The patient is status post angioplasty. Discoloration of the toe is likely from the ischemia. Her pain may be secondary to the neuropathy, as well as from hyperperfusion. Will start the patient on Lidoderm patch along the right foot. If symptoms continue to worsen, we can also consider oral neuropathic medications. I will also check an x-ray to review the right foot to rule out any acute pathology. Clinically, the patient is okay to discharge home. She can follow up in my office in about 1-[address] Valdivia for letting me assist in this patient's care. Job#: [id number] JUHI
[2018-05-16] MEDS: INSULIN REGULAR, HUMAN 100 UNIT/1 ML 3ML VIAL SQ SCH ×3 (07:30→16:50)
[2018-05-16] MEDS: TOPROL PO SCH (08:48)
[2018-05-16] MEDS: ASPIRIN 81 MG ENTERIC COATED PO SCH (08:48)
[2018-05-16] MEDS: CLOPIDOGREL BISULFATE 75 MG TAB PO SCH (08:48)
[2018-05-16] MEDS ORDERED: LIDOCAINE 5% PATCH TP SCH (09:00)
[2018-05-16] MEDS: INSULIN DETEMIR 100 UNIT/ML PEN SQ SCH (09:12)
--- NOTE | 2018-05-16 11:12 | Diagnostic Imaging Report ---
PROCEDURE:X-RAY RIGHT FOOT, COMPLETE COMPARISON:None. INDICATIONS:RIGHT FOOT PAIN FINDINGS: Limited by generalized demineralization. There are no fractures, dislocations, lytic or blastic lesions. Vascular calcifications. Small dorsal and plantar thickening or enthesophytes. The soft-tissues are unremarkable. CONCLUSION: No acute fracture or dislocation of the right foot. Dictated by: Jovanni Lopez M.D. on 05/16/2018 at 11:17 Electronically approved by: Jovanni Lopez M.D. on 05/16/2018 at 11:17
--- NOTE | 2018-05-16 12:26 | Progress Note ---
DATE: May 16, 2018 CARDIOLOGY PROGRESS NOTE SUBJECTIVE: Continues to have pain in her right foot and ankle area. Currently relieved with lidocaine patch. She says that she can move her foot; however, it is very painful on movement. She is status post JAIL KEEPER of her right distal SFA with atherectomy done by me 48 hours ago. REVIEW OF SYSTEMS: As above, otherwise negative. OBJECTIVE VITAL SIGNS: Temperature 98.6, pulse 83, respiratory rate 18, blood pressure 140/60, saturating 96% on room air. GENERAL: Well-developed, elderly female, in no acute distress. CARDIOVASCULAR: PMI is nondisplaced. Normal S1 and S2. Palpable carotid pulses. Palpable radial pulse. Palpable pedal pulse now on the right foot. Thready pedal pulse on the left foot, not palpable. No peripheral edema. ABDOMEN: Soft, nontender. LUNGS: Clear to auscultation bilaterally. NEURO AND PSYCH: Alert and oriented to person, place, and time. Normal affect. CARDIAC MEDICATIONS: Reviewed. LABORATORY DATA: Reviewed. Peripheral angiogram completed by me on 05/14/2018 with intervention to the right SFA, showed 98% heavily calcified lesion in the distal SFA going into the P1 segment of the right popliteal artery and complete total occlusion of the right posterior tibial artery, status post atherectomy and drug-coated balloon angioplasty of the SFA popliteal system with successful NERIS-3 flow and palpable pulse to the right dorsalis pedis artery. TELEMETRY: Normal sinus rhythm. IMPRESSIONS 1. Critical limb ischemia. 2. Peripheral arterial disease, status post percutaneous transluminal angioplasty of the right superficial femoral artery and popliteal. 3. Diabetes. 4. Hypertension. 5. Qjnah-sb-drkvpqs kidney disease. 6. Urinary tract infection. RECOMMENDATIONS: Continue aspirin and Plavix. Patient will need dual antiplatelet therapy for 6 weeks and aspirin daily for life. Continue current cardiac medications otherwise. Podiatry has been consulted to assess her for pain. Given that she had critical limb ischemia at home for several days before revascularization, it is possible that some of the toes may not be viable long-term. She will need followup with podiatry for management of her foot pain as well as any necrosis that may result. Currently no further revascularization is planned as she has dopplerable and palpable pulse in her right foot. Thank you for this consult. We will continue to follow. Job#: [id number] TA
[2018-05-16] MEDS: SODIUM CHLORIDE 0.9% 1000ML 1,000 ML IV SCH ×2 (12:32→16:52)
--- NOTE | 2018-05-16 15:43 | Discharge Summary ---
ADDENDUM Patient stayed overnight in which we got podiatry evaluation, Dr. Cuellar, to evaluate the right big toe further. He reports that this is likely ischemic pain which would likely take time before the pain will go away. He did get an x-ray of the right foot that showed no acute fracture or dislocation of the right foot. He recommends following up with him in 1 week in his office. He reports that the toe needs to demarcate and probably likely will need to be amputated over time. While overnight patient was doing well with no other complaints. She was afebrile, vital signs were stable. Blood pressure on discharge was 127/59. I also spoke with cardiology and cleared the patient for discharge home. On the day of discharge vital signs stable, labs were stable. Patient was seen, evaluated and examined thoroughly. Noted to have any other issues and no other complaints. Patient verbalized understanding and agrees to plan of care. Will follow up accordingly as an outpatient with podiatry in 1 week and cardiology in 1 week as well as PCP. DISCHARGE MEDICATIONS: Please see above in the previous discharge summary. DISPOSITION: To home. CONDITION: Stable. FOLLOWUP: Followup with primary care physician in 1 week, cardiology and podiatry in 1 week for further management and care. STACIE MORRIS MD Job#: [id number] DG
[2018-05-16] MEDS ORDERED: PLAVIX75 MG PO (18:19)
[2018-05-16] MEDS ORDERED: TYLENOL WITH C1 EACH PO (18:20)
[2018-05-16] MEDS ORDERED: KEFLEX500 MG (18:21)
[2018-05-16] MEDS ORDERED: ASPIR 8181 MG (18:24)
[2018-05-16] MEDS ORDERED: NOVOLOG100 UNITS1 SQ (18:29)
[2018-05-18] MEDS ORDERED: HYDROCHLOROTHIA25 MG PO (22:53)
[2018-05-18] MEDS ORDERED: LOSARTAN POTAS100 MG PO (22:53)
== END 2018-05-16 19:47 | disposition home health service (06) | DRG 271 ==
LOC: ER 17:28 → ERHOLD 22:20 → MED/SURG 05-12 15:41
PROVIDERS: ADMIT Internal Medicine; ATTEND Internal Medicine
PROC: 04CM3ZZ Extirpation of Matter from Right Popliteal Artery, Percutaneous Approach (ICD-10-PCS; principal; 2018-05-14)
PROC: 04CK3ZZ Extirpation of Matter from Right Femoral Artery, Percutaneous Approach (ICD-10-PCS; 2018-05-14)
PROC: 047H3Z1 Dilation of Right External Iliac Artery using Drug-Coated Balloon, Percutaneous Approach (ICD-10-PCS; 2018-05-14)
PROC: 047M3Z1 Dilation of Right Popliteal Artery using Drug-Coated Balloon, Percutaneous Approach (ICD-10-PCS; 2018-05-14)
PROC: 047K3Z1 Dilation of Right Femoral Artery using Drug-Coated Balloon, Percutaneous Approach (ICD-10-PCS; 2018-05-14)
PROC: B40D1ZZ Plain Radiography of Aorta and Bilateral Lower Extremity Arteries using Low Osmolar Contrast (ICD-10-PCS; 2018-05-14)
DX: E11.51 Type 2 diabetes mellitus with diabetic peripheral angiopathy without gangrene (principal); N39.0 Urinary tract infection, site not specified; N17.9 Acute kidney failure, unspecified; M79.662 Pain in left lower leg; M79.661 Pain in right lower leg; K62.3 Rectal prolapse; E11.65 Type 2 diabetes mellitus with hyperglycemia; Z79.4 Long term (current) use of insulin; Z91.19 Patient's noncompliance with other medical treatment and regimen; E11.22 Type 2 diabetes mellitus with diabetic chronic kidney disease; I12.9 Hypertensive chronic kidney disease with stage 1 through stage 4 chronic kidney disease, or unspecified chronic kidney disease; N18.9 Chronic kidney disease, unspecified; E66.9 Obesity, unspecified; E11.42 Type 2 diabetes mellitus with diabetic polyneuropathy; Z68.29 Body mass index [BMI] 29.0-29.9, adult
CPT/HCPCS: 36415; 37225; 75716; 80048; 80053; 81001; 82550; 82553; 82948; 83036; 84484; 85007; 85025; 85027; 85347; 85610; 85730; 93925; 93970; 99285; C1769; J0360; J0696; J1644; J2001; J2250; J2405; J7030; Q9967

== ENCOUNTER 2018-07-29 17:09 | Inpatient (IN) | payer MEDICARE ==
[~2018-07-29] VITALS: Ht 165.1 cm; Wt 79.4 kg
[~2018-07-29 17:09] MED LIST: ASPIR 8181 MG; GLIPIZIDE ER10 MG PO; HYDROCHLOROTHIA25 MG PO; KEFLEX500 MG; LANTUS 3ML100 UNITS/ SC; LOSARTAN POTAS100 MG PO; LOSARTAN-HCTZ1 EAC1 PO; METFORMIN HCL500 MG PO; METOPROLOL SUC100 MG PO; NOVOLOG100 UNITS1 SQ; PLAVIX75 MG PO; TYLENOL WITH C1 EACH PO
[2018-07-29] MEDS ORDERED: VANCOMYCIN 1GM/NS 250 ML 250 ML IV STA (17:25)
[2018-07-29] MEDS ORDERED: SODIUM CHLORIDE 0.9% 1000ML 1,000 ML IV STA (17:25)
[2018-07-29] MEDS ORDERED: CLINDAMYCIN PHOS 900MG/ 50ML 50 ML IV STA (17:29)
[2018-07-29 18:10] LABS: BASOPHILS # (AUTO) 0.1 (0.0-0.1); BASOPHILS % 0.9 % (0.0-1.0); EOSINOPHILS # (AUTO) 0.4 (0.0-0.4); EOSINOPHILS % 3.6 % (0.0-6.0); HEMATOCRIT 33.2 % (34.2-44.1); HEMOGLOBIN 11.1 g/dL (12.0-16.0); LYMPHOCYTES # (AUTO) 2.2 (1.0-3.2); LYMPHOCYTES % 19.3 % (18.0-39.1); MEAN CORPUSCULAR HEMOGLOBIN 30.6 pg (28-32); MEAN CORPUSCULAR HGB CONC 33.4 g/dL (31-35); MEAN CORPUSCULAR VOLUME 91.5 fL (81-99); MONOCYTES # (AUTO) 0.9 (0.2-0.8); MONOCYTES % 7.7 % (4.4-11.3); NEUTROPHILS # (AUTO) 7.5 (2.1-6.9); NEUTROPHILS % 67.2 % (38.7-80.0); PLATELET COUNT 227 x10e3/uL (140-360); RED BLOOD COUNT 3.63 x10e6/uL (3.6-5.1); RED CELL DISTRIBUTION WIDTH 14.3 % (11.7-14.4)
--- NOTE | 2018-07-29 18:10 | Diagnostic Imaging Report ---
EXAM: FOOT RIGHT COMPLETE DATE: 07/29/2018 5:25 PM INDICATION: Foot ulcer COMPARISON: None FINDINGS: Forefoot amputation changes present at the mid metatarsal level. There is soft tissue swelling about the foot with no distinct gas or foreign body. On the lateral view there is alteration dorsally. Bones are demineralized. Small plantar and posterior calcaneal enthesophytes present. IMPRESSION: Amputation changes. Soft tissue ulceration. Osseous demineralization limits evaluation. No definite osseous erosive changes. If concern present for soft tissue abscess or osteomyelitis, MRI would be recommended. Signed by: Dr. Jersey Plascencia MD on 07/29/2018 6:06 PM
[2018-07-29 18:31] LABS: ALBUMIN 3.6 g/dL (3.5-5.0); ANION GAP 17.6 mmol/L (8-16); CALCIUM 10.5 mg/dL (8.4-10.2); CREATININE, SERUM 1.06 mg/dL (0.57-1.11); POTASSIUM 4.6 mmol/L (3.5-5.1)
[2018-07-29 18:32] LABS: PROTHROMBIN TIME 14.1 seconds (11.9-14.5)
[2018-07-29] MEDS ORDERED: CLINDAMYCIN PHOS 900MG/ 50ML 50 ML IV SCH (22:00)
[2018-07-29 22:20] LABS: BILIRUBIN,URINE NEGATIVE (NEGATIVE); CLARITY,URINE CLOUDY (CLEAR); COLOR,URINE YELLOW (YELLOW); KETONES,URINE NEGATIVE (NEGATIVE); LEUKOCYTE ESTERASE ,URINE 2+ (NEGATIVE); NITRITE,URINE NEGATIVE (NEGATIVE); PROTEIN,URINE DIPSTICK NEGATIVE (NEGATIVE); URINE UROBILINOGEN 0.2 mg/dL (0.2 - 1)
[2018-07-29 22:55] LABS: BACTERIA,URINE MANY /HPF; EPITHELIAL CELLS,URINE RARE /LPF; RBC,URINE 0-5 /HPF (0-5); WBC,URINE (MAN) >50 /HPF (0-5)
[2018-07-30] MEDS ORDERED: AMLODIPINE BESYL5 MG PO (07:11)
[2018-07-30] MEDS ORDERED: DEXTROSE 50% SYRINGE 50 ML IV PRN (08:15)
[2018-07-30] MEDS: INSULIN REGULAR, HUMAN 100 UNIT/1 ML 3ML VIAL SQ SCH ×3 (08:20→21:58)
[2018-07-30] MEDS ORDERED: SODIUM CHLORIDE 0.9% 1000ML 1,000 ML IV SCH (08:30)
[2018-07-30] MEDS ORDERED: ACETAMINOPHEN/CODEINE 300MG - 30MG TAB PO PRN (08:30)
[2018-07-30] MEDS: ASPIRIN 81 MG CHEW TAB PO SCH (08:55)
[2018-07-30] MEDS: AMLODIPINE BESYLATE 5 MG TAB PO SCH (08:57)
[2018-07-30] MEDS: INSULIN DETEMIR 100 UNIT/ML PEN SQ SCH ×2 (08:57→17:02)
[2018-07-30] MEDS: CLOPIDOGREL BISULFATE 75 MG TAB PO SCH (08:57)
[2018-07-30] MEDS: CLINDAMYCIN PHOS 900MG/ 50ML 50 ML IV SCH ×2 (08:58→17:14)
[2018-07-30] MEDS ORDERED: NON-FORMULARY MEDICATION (Metoprolol Succinate 1 TAB) PO SCH (09:00)
[2018-07-30] MEDS ORDERED: LEVOFLOXACIN 750MG/D5W 150ML 150 ML IV SCH (09:45)
[2018-07-30 09:46] LABS: CHOL/HDL RATIO 2.7 (3.0-3.6)
[2018-07-30] MEDS: METOPROLOL SUCCINATE 50 MG TAB XL PO SCH (12:10)
[2018-07-30] MEDS: VANCOMYCIN 1GM/NS 250 ML 250 ML IV SCH (12:10)
--- NOTE | 2018-07-30 12:48 | History and Physical ---
PRIMARY CARE PHYSICIAN: Patient does not recall. CHIEF COMPLAINT: Right foot infection. HISTORY OF PRESENT ILLNESS: This is a 78-year-old woman with a history of diabetes mellitus type 2 and diabetic foot ulcer, who underwent right transmetatarsal amputation, now developing infection at the right TMA sites with oozing a material and skin changes. She is unclear as to whether she has received antibiotics by her primary care doctor. She was admitted for further evaluation and management. PAST MEDICAL HISTORY: Diabetes mellitus type 2, peripheral vascular disease secondary to diabetes mellitus type 2, peripheral arterial disease status post angioplasty, ischemic right foot status post right TMA, pulmonary embolism, hypertension, and diabetic neuropathy. PAST SURGICAL HISTORY: Right TMA and also angioplasty of the right leg. ALLERGIES: PER ELECTRONIC MEDICAL RECORD. FAMILY HISTORY/SOCIAL HISTORY: Past has family history of hypertension and diabetes. Patient states that she is single, has one child. No alcohol, illicits, or cigarettes. MEDICATIONS: Per electronic medical record. REVIEW OF SYSTEMS: Denies any dizziness, chest pain, shortness of breath, fever, chills, sweats, nausea, vomiting, or diarrhea. PHYSICAL EXAMINATION VITAL SIGNS: Reviewed. GENERAL: A tired-appearing woman, resting in bed. HEENT: Anicteric. CARDIOVASCULAR: Normal S1 and S2. LUNGS: Moderate breath sounds. ABDOMEN: Soft and nondistended. EXTREMITIES: Left foot appears normal. Right foot has TMA with some necrotic changes at the surgical site with some dehiscence of the surgical site. She has tenderness of the foot. The right foot dorsalis pedis is 1+ and the foot is warm. There is no discharge at this time. No odor is detected. SKIN: Dry. PSYCHIATRIC: Normal affect. NEUROLOGICAL: Alert and oriented x3. Moving all extremities. LABS: Reviewed. MEDICATIONS: Reviewed. ASSESSMENT: This is a 78-year-old woman with; 1. Right diabetic foot ulcer. 2. Diabetes mellitus type 2. 3. Peripheral arterial disease secondary to diabetes mellitus. 4. History of pulmonary embolism. 5. Hypertension. 6. Diabetic neuropathy. 7. Urinary tract infection. 8. Acute kidney injury. 9. Prerenal azotemia PLAN 1. Patient is on vancomycin and clindamycin. We will add IV Levaquin for better gram negative coverage. 2. Consult podiatry. 3. Obtain hemoglobin A1c and lipid panel. 4. May need vascular evaluation. 5. IV fluids for acute kidney injury. 6. Blood pressure control. 7. Follow up cultures. Follow up recommendations. X-ray did not reveal any signs of osteomyelitis. Job#: [id number] DEONDRE
[2018-07-30 14:15] VITALS: BP 145/78
[2018-07-30 14:22] VITALS: BP 145/78
[2018-07-30 14:26] VITALS: BP 145/78
[2018-07-30 16:00] VITALS: BP 125/54
[2018-07-30 20:53] VITALS: BP 134/63
[2018-07-31] MEDS: CLINDAMYCIN PHOS 900MG/ 50ML 50 ML IV SCH ×3 (00:05→16:30)
[2018-07-31 01:40] VITALS: BP 139/60
[2018-07-31 06:36] VITALS: BP 140/65
[2018-07-31] MEDS: INSULIN REGULAR, HUMAN 100 UNIT/1 ML 3ML VIAL SQ SCH ×3 (07:30→16:17)
[2018-07-31 07:59] LABS: BASOPHILS # (AUTO) 0.1 (0.0-0.1); BASOPHILS % 0.7 % (0.0-1.0); EOSINOPHILS # (AUTO) 0.4 (0.0-0.4); EOSINOPHILS % 4.4 % (0.0-6.0); HEMATOCRIT 27.8 % (34.2-44.1); HEMOGLOBIN 9.4 g/dL (12.0-16.0); LYMPHOCYTES # (AUTO) 1.6 (1.0-3.2); LYMPHOCYTES % 18.8 % (18.0-39.1); MEAN CORPUSCULAR HEMOGLOBIN 30.6 pg (28-32); MEAN CORPUSCULAR HGB CONC 33.8 g/dL (31-35); MEAN CORPUSCULAR VOLUME 90.6 fL (81-99); MONOCYTES # (AUTO) 0.6 (0.2-0.8); NEUTROPHILS # (AUTO) 5.8 (2.1-6.9); NEUTROPHILS % 68.9 % (38.7-80.0); PLATELET COUNT 211 x10e3/uL (140-360); RED BLOOD COUNT 3.07 x10e6/uL (3.6-5.1); RED CELL DISTRIBUTION WIDTH 14.3 % (11.7-14.4)
[2018-07-31 08:27] LABS: ANION GAP 14.2 mmol/L (8-16); BLOOD UREA NITROGEN 18 mg/dL (7-26); BUN/CREATININE RATIO 23 (6-25); CALCIUM 9.5 mg/dL (8.4-10.2); CARBON DIOXIDE 23 mmol/L (22-29); CHLORIDE 108 mmol/L (98-107); CREATININE, SERUM 0.78 mg/dL (0.57-1.11); EST GLOMERULAR FILTRATION RATE > 60 ML/MIN (60-); GLUCOSE 105 mg/dL (74-118); POTASSIUM 4.2 mmol/L (3.5-5.1); SODIUM 141 mmol/L (136-145)
[2018-07-31 08:32] VITALS: BP 168/72
[2018-07-31] MEDS: METOPROLOL SUCCINATE 50 MG TAB XL PO SCH (08:53)
[2018-07-31] MEDS: CLOPIDOGREL BISULFATE 75 MG TAB PO SCH (08:53)
[2018-07-31] MEDS: AMLODIPINE BESYLATE 5 MG TAB PO SCH (08:53)
[2018-07-31] MEDS: ASPIRIN 81 MG CHEW TAB PO SCH (08:53)
[2018-07-31] MEDS: INSULIN DETEMIR 100 UNIT/ML PEN SQ SCH ×2 (09:00→17:00)
[2018-07-31] MEDS: VANCOMYCIN 1GM/NS 250 ML 250 ML IV SCH (09:26)
[2018-07-31 12:28] VITALS: BP 169/72
--- NOTE | 2018-07-31 16:17 | Consultation ---
DATE OF CONSULTATION: July 31, 2018 REASON FOR CONSULTATION: Right foot infection, status post transmetatarsal amputation. HISTORY OF PRESENT ILLNESS: Thank you Dr. Gant for this consultation. This is a 78-year-old female. She underwent a transmetatarsal amputation of her right foot about 6 weeks ago. She did have some dehiscence of the stump site. Over the weekend she noticed some discharge, pain in the right foot. She was unable to walk. The patient notes she had been walking on her foot more than usual in the past several days. She denies any nausea or vomiting. No fever or chills. PAST MEDICAL HISTORY: Diabetes mellitus, peripheral vascular disease, history of pulmonary embolism, hypertension. PAST SURGICAL HISTORY: Right transmetatarsal amputation, angioplasty of the right leg. ALLERGIES: PENICILLIN, PROMETHAZINE, SAXAGLIPTIN. MEDICATIONS: MAR was reviewed. FAMILY HISTORY: Noncontributory. SOCIAL HISTORY: No alcohol, tobacco or illicit drug use. Daughter is involved in her care. REVIEW OF SYSTEMS: All systems reviewed and they were negative except as stated above. PHYSICAL EXAMINATION VITAL SIGNS: Temperature 97.7, heart rate 65, respiratory rate 18, blood pressure 169/72. GENERAL: Patient is alert x3 and in no acute distress. Dorsalis pedis and posterior tibials were 1/4 and 0/4. Skin temperature was warm to touch. Open wound along the distal stump site of the right foot with a fibrotic base. Some eschar tissue. No purulent discharge. No malodor. Skin atrophic changes. LABORATORY DATA: White blood cell count 0.46, hemoglobin 9.4, hematocrit 37.8, platelets 211,000, sodium 141, potassium 4.2, chloride 108, bicarb 23, BUN 18, creatinine 0.78, glucose 105. X-rays of the right foot showed osteal demyelination. ASSESSMENT: 1. Open wound, right transmetatarsal amputation stump site. 2. Status post transmetatarsal amputation. 3. Diabetes mellitus, peripheral neuropathy. 4. Peripheral vascular disease. PLAN: X-ray reviewed. Discussed with nursing staff. Okay to switch the patient to oral Levaquin. Local care with gentamicin 0.1% cream. Okay to discharge from my standpoint. Partial weightbearing on the right foot. Follow up in my office in about one week. Thank you for asking me to assist in this patient's care. Job#: [id number] GH MTDTrace
[2018-07-31 18:15] VITALS: BP 159/70
[2018-08-01] MEDS ORDERED: GENTAMICIN SULFATE 15 GM CR TP SCH (09:00)
== END 2018-07-31 18:15 | disposition home health service (06) | DRG 565 ==
LOC: ER 17:09 → ERHOLD 19:19 → MED/SURG2 07-30 14:08
PROVIDERS: ADMIT Internal Medicine; ATTEND Internal Medicine
DX: T87.43 Infection of amputation stump, right lower extremity (principal); L03.115 Cellulitis of right lower limb; N39.0 Urinary tract infection, site not specified; N17.9 Acute kidney failure, unspecified; Z89.431 Acquired absence of right foot; E11.621 Type 2 diabetes mellitus with foot ulcer; E11.51 Type 2 diabetes mellitus with diabetic peripheral angiopathy without gangrene; Z86.711 Personal history of pulmonary embolism; E11.42 Type 2 diabetes mellitus with diabetic polyneuropathy; R79.89 Other specified abnormal findings of blood chemistry; Z82.49 Family history of ischemic heart disease and other diseases of the circulatory system; Z83.3 Family history of diabetes mellitus; Z88.0 Allergy status to penicillin; Z88.8 Allergy status to other drugs, medicaments and biological substances; Z79.4 Long term (current) use of insulin
CPT/HCPCS: 36415; 80048; 80053; 80061; 81001; 82948; 83036; 85025; 85610; 87086; 87186; 99284; J3370; J7030

== ENCOUNTER 2019-10-16 20:59 | Inpatient (IN) | payer MEDICARE ==
[~2019-10-16] VITALS: Ht 165.1 cm; Wt 84.8 kg
[~2019-10-16 20:59] MED LIST changes: +AMLODIPINE BESYL5 MG PO
[2019-10-16] MEDS ORDERED: ALBUTEROL/IPRATROPIUM 3 ML NEB NEB ONE (21:00)
[2019-10-16] MEDS ORDERED: ASPIRIN 81 MG CHEW TAB PO ONE ×2 (21:00→22:00)
[2019-10-16 21:22] LABS: BASOPHILS # (AUTO) 0.1 (0.0-0.1); BASOPHILS % 0.9 % (0.0-1.0); EOSINOPHILS # (AUTO) 0.2 (0.0-0.4); EOSINOPHILS % 2.6 % (0.0-6.0); LYMPHOCYTES # (AUTO) 1.7 (1.0-3.2); LYMPHOCYTES % 18.6 % (18.0-39.1); MEAN CORPUSCULAR HEMOGLOBIN 31.6 pg (28-32); MEAN CORPUSCULAR HGB CONC 32.1 g/dL (31-35); MEAN CORPUSCULAR VOLUME 98.2 fL (81-99); MONOCYTES # (AUTO) 0.6 (0.2-0.8); MONOCYTES % 6.6 % (4.4-11.3); NEUTROPHILS # (AUTO) 6.4 (2.1-6.9); NEUTROPHILS % 70.6 % (38.7-80.0); PLATELET COUNT 241 x10e3/uL (140-360); RED BLOOD COUNT 2.85 x10e6/uL (3.6-5.1); RED CELL DISTRIBUTION WIDTH 12.8 % (11.7-14.4)
[2019-10-16 21:44] LABS: ALBUMIN/GLOBULIN RATIO 0.8 (0.8-2.0); ANION GAP 17.9 mmol/L (8-16); CALCIUM 8.9 mg/dL (8.4-10.2); CREATININE, SERUM 1.37 mg/dL (0.57-1.11); POTASSIUM 5.9 mmol/L (3.5-5.1)
[2019-10-16 21:50] LABS: CREATINE KINASE MB 9.8 ng/mL (0-5.0)
[2019-10-16] MEDS ORDERED: SODIUM CHLORIDE FLUSH 10 ML SYR INJ PRN (22:00)
[2019-10-16] MEDS ORDERED: FUROSEMIDE INJ 10 MG/ML 4 ML VIAL IV ONE (22:00)
[2019-10-16] MEDS ORDERED: CALCIUM GLUCONATE 10% INJ 0.465 MEQ/ML VIAL IV STA (22:05)
[2019-10-16] MEDS ORDERED: DEXTROSE 50% SYRINGE 50 ML IV STA (22:05)
[2019-10-16] MEDS ORDERED: SODIUM BICARBONATE 8.4% INJ 50 ML SYR IV STA (22:05)
[2019-10-16] MEDS ORDERED: INSULIN REGULAR, HUMAN 100 UNIT/1 ML 3ML VIAL IV STA (22:05)
[2019-10-16] MEDS ORDERED: SOD POLYSTYRENE SULFONATE SUSP 15 GM/60 ML BTL PO STA (22:05)
[2019-10-16] MEDS ORDERED: ALBUTEROL SULF 0.083% NEB SOLN 3 ML NEB NEB STA (22:08)
--- NOTE | 2019-10-16 22:14 | Diagnostic Imaging Report ---
EXAMINATION: CHEST SINGLE (PORTABLE) INDICATION: Trouble breathing COMPARISON: Abdominal CT 05/19/2018 FINDINGS: TUBES and LINES: None. LUNGS/PLEURA: Hazy airspace opacities in the mid to lower lungs with obscuration of the hemidiaphragms.Peribronchial cuffing. Increased pulmonary interstitial lung markings within the mid to lower lungs. No pneumothorax. HEART AND MEDIASTINUM: Cardiac size is mildly enlarged. BONES AND SOFT TISSUES: No acute osseous lesion. Soft tissues are unremarkable. UPPER ABDOMEN: No free air under the diaphragm. IMPRESSION: Mild cardiomegaly and pulmonary edema with small pleural effusions. Superimposed pneumonia is possible. Signed by: Sim Peña DO on 10/16/2019 10:10 PM
[2019-10-16] MEDS ORDERED: DEXTROSE 50% SYRINGE 50 ML IV PRN (22:15)
[2019-10-16] MEDS: ENOXAPARIN INJ 80 MG/0.8 ML SYR SC SCH (22:25)
[2019-10-16 22:27] LABS: BILIRUBIN,URINE NEGATIVE (NEGATIVE); CLARITY,URINE CLOUDY (CLEAR); COLOR,URINE YELLOW (YELLOW); KETONES,URINE NEGATIVE (NEGATIVE); LEUKOCYTE ESTERASE ,URINE MODERATE (NEGATIVE); NITRITE,URINE POSITIVE (NEGATIVE); PROTEIN,URINE DIPSTICK NEGATIVE (NEGATIVE); URINE UROBILINOGEN 0.2 mg/dL (0.2 - 1)
[2019-10-16] MEDS ORDERED: SODIUM CHLORIDE 0.9% 50ML 50 ML ONE (22:30)
[2019-10-16] MEDS ORDERED: SODIUM CHLORIDE 0.9% 100 ML ONE (22:37)
[2019-10-16 22:48] LABS: BACTERIA,URINE MANY /HPF; EPITHELIAL CELLS,URINE FEW /LPF; RBC,URINE 21-50 /HPF (0-5); WBC,URINE (MAN) >50 /HPF (0-5)
[2019-10-16 22:49] LABS: AMORPHOUS SEDIMENT,URINE MODERATE (FEW); TRANSITIONAL EPI CELLS,URINE FEW
[2019-10-16] MEDS ORDERED: LOSARTAN POTAS100 MG PO (23:05)
[2019-10-16] MEDS ORDERED: TRESIBA FL100 UNIT/1 SQ (23:08)
[2019-10-16] MEDS ORDERED: ELIQUIS2.5 MG PO (23:08)
[2019-10-16] MEDS ORDERED: CEPHALEXIN 500 MG CAP PO STA (23:15)
[2019-10-16 23:26] VITALS: BP 109/55
--- NOTE | 2019-10-16 23:26 | NUR ---
Received patient from the ER via stretcher. Patient is alert and oriented. Assisted to wheelchair and bathroom. Patient had a bowel movement. Assisted to bed. Bilateral lower extremities are edematous. o2 at 3l/min via nasal cannula. Call light within reach.
[2019-10-17] VITALS (18 sets, daily range): BP systolic 76–113; BP diastolic 36–55
[2019-10-17 06:09] LABS: CREATINE KINASE MB 5.9 ng/mL (0-5.0)
--- NOTE | 2019-10-17 06:21 | NUR ---
Dr. Burgos notified of this onsult
--- NOTE | 2019-10-17 07:00 | NUR ---
RECEIVED PATIENT RESTING IN BED NO S/S OF DISTRESS. BED LOW, WHEELS LOCKED, SIDE RAILS X2. CALL LIGHT IN REACH WILL CONTINUE TO MONITOR PATIENT.
--- NOTE | 2019-10-17 07:14 | NUR ---
H&P CHIEF COMPLAINT: chest discomfort and SOB HISTORY OF PRESENT ILLNESS: This is a 79-year-old woman, PCP Dr Witt, with mild left sided chest discomfort and SOB. some increase in leg edema; PAST MEDICAL HISTORY: Diabetes mellitus type 2, peripheral vascular disease secondary to diabetes mellitus type 2, peripheral arterial disease status post angioplasty, ischemic right foot status post right TMA, pulmonary embolism, hypertension, and diabetic neuropathy, PAD, Diabetic foot ulcer PAST SURGICAL HISTORY: Right TMA and also angioplasty of the right leg. ALLERGIES: PER ELECTRONIC MEDICAL RECORD. FAMILY HISTORY/SOCIAL HISTORY: Past has family history of hypertension and diabetes. Patient states that she is single, has one child. No alcohol, illicits, or cigarettes. MEDICATIONS: Per electronic medical record. REVIEW OF SYSTEMS: Denies any dizziness, chest pain, shortness of breath, fever, chills, sweats, nausea, vomiting, or diarrhea. PHYSICAL EXAMINATION VITAL SIGNS: Reviewed. GENERAL: A tired-appearing woman, resting in bed. HEENT: Anicteric. CARDIOVASCULAR: Normal S1 and S2. LUNGS: Reduced BS ABDOMEN: Soft and nondistended. EXTREMITIES: Right TMA; healed; Trace leg edema SKIN: Dry. PSYCHIATRIC: Normal affect. NEUROLOGICAL: Alert and oriented x3. Moving all extremities. LABS: Reviewed. MEDICATIONS: Reviewed. ASSESSMENT: 79yoF NSTEMI PNA DM2 HTN HLD Hx Pulmonary embolism PLAN Cardio eval; Echo; will need further eval; Lovenox BID hab1c/lipids Use IV abx PT consult; AC; GI prop. Lucien Gant MD, PhD.
[2019-10-17] MEDS: INSULIN REGULAR, HUMAN 100 UNIT/1 ML 3ML VIAL SQ SCH ×4 (07:30→21:00)
[2019-10-17 07:49] LABS: CHOL/HDL RATIO 2.6 (3.0-3.6)
[2019-10-17] MEDS: INSULIN LISPRO 100 UNIT/1 ML 3ML VIAL SQ SCH ×4 (08:00→21:00)
[2019-10-17] MEDS: METOPROLOL SUCCINATE 50 MG TAB XL PO SCH (08:04)
[2019-10-17 08:53] LABS: BASOPHILS # (AUTO) 0.1 (0.0-0.1); BASOPHILS % 0.6 % (0.0-1.0); EOSINOPHILS # (AUTO) 0.1 (0.0-0.4); EOSINOPHILS % 1.1 % (0.0-6.0); HEMATOCRIT 26.3 % (34.2-44.1); HEMOGLOBIN 8.7 g/dL (12.0-16.0); LYMPHOCYTES # (AUTO) 1.4 (1.0-3.2); LYMPHOCYTES % 13.6 % (18.0-39.1); MEAN CORPUSCULAR HEMOGLOBIN 31.8 pg (28-32); MEAN CORPUSCULAR HGB CONC 33.1 g/dL (31-35); MONOCYTES # (AUTO) 0.7 (0.2-0.8); MONOCYTES % 6.3 % (4.4-11.3); NEUTROPHILS # (AUTO) 8.2 (2.1-6.9); NEUTROPHILS % 77.9 % (38.7-80.0); PLATELET COUNT 211 x10e3/uL (140-360); RED BLOOD COUNT 2.74 x10e6/uL (3.6-5.1); RED CELL DISTRIBUTION WIDTH 12.8 % (11.7-14.4)
[2019-10-17] MEDS ORDERED: WATER STERILE 10 ML VIAL IV SCH (09:00)
[2019-10-17 09:24] LABS: ALBUMIN 2.9 g/dL (3.5-5.0); ALBUMIN/GLOBULIN RATIO 0.9 (0.8-2.0); ANION GAP 16.7 mmol/L (8-16); CALCIUM 9.2 mg/dL (8.4-10.2); CREATININE, SERUM 1.21 mg/dL (0.57-1.11); POTASSIUM 5.7 mmol/L (3.5-5.1)
[2019-10-17] MEDS: ENOXAPARIN INJ 80 MG/0.8 ML SYR SC SCH (10:04)
[2019-10-17] MEDS: CLOPIDOGREL BISULFATE 75 MG TAB PO SCH (10:04)
[2019-10-17] MEDS: FAMOTIDINE 20 MG TAB PO SCH ×2 (10:04→17:52)
[2019-10-17] MEDS: AZTREONAM (AZACTAM) 0.5 GM in SODIUM CHLORIDE 0.9% 50ML 50 ML IV SCH ×2 (11:13→18:03)
[2019-10-17] MEDS ORDERED: SODIUM CHLORIDE 0.9% 250ML 250 ML ONE (11:17)
[2019-10-17 11:30] LABS: CREATINE KINASE MB 5.5 ng/mL (0-5.0)
--- NOTE | 2019-10-17 12:40 | NUR ---
NOTIFIED DR. WERNER OF REPEAT POTASSIUM 4.4 NO NEW ORDERS AT THIS TIME
[2019-10-17] MEDS: AZITHROMYCIN 250MG/NS 100 ML 100 ML IV SCH (14:40)
[2019-10-17] MEDS ORDERED: SODIUM CHLORIDE 0.9% 1000ML 1,000 ML ONE (15:43)
--- NOTE | 2019-10-17 15:53 | NUR ---
PATIENT LETHARGIC WHEN ENTERING ROOM. BLOOD PRESSURE 79/40, HEART RATE 52. 250 ML BOLUS GIVEN DUE TO PATIENT HAVING CHF. CALLED CHARGE NURSE REGARDING PATIENT CURRENT STATUS AND RAPID RESPONSE CALLED. RESPONSE TEAM IN ROOM, NEW ORDERS IMPLEMENTED.
[2019-10-17] MEDS ORDERED: NOREPINEPHRINE INJ 4MG/4ML 8 MG in DEXTROSE 5% 250ML 250 ML IV SCH (16:00)
[2019-10-17 16:12] LABS: BASOPHILS # (AUTO) 0.1 (0.0-0.1); BASOPHILS % 0.6 % (0.0-1.0); EOSINOPHILS # (AUTO) 0.1 (0.0-0.4); EOSINOPHILS % 1.3 % (0.0-6.0); HEMATOCRIT 23.4 % (34.2-44.1); HEMOGLOBIN 7.7 g/dL (12.0-16.0); LYMPHOCYTES % 13.3 % (18.0-39.1); MEAN CORPUSCULAR HEMOGLOBIN 32.2 pg (28-32); MEAN CORPUSCULAR HGB CONC 32.9 g/dL (31-35); MEAN CORPUSCULAR VOLUME 97.9 fL (81-99); MONOCYTES # (AUTO) 0.6 (0.2-0.8); MONOCYTES % 7.5 % (4.4-11.3); PLATELET COUNT 185 x10e3/uL (140-360); RED BLOOD COUNT 2.39 x10e6/uL (3.6-5.1); RED CELL DISTRIBUTION WIDTH 12.8 % (11.7-14.4)
--- NOTE | 2019-10-17 16:24 | NUR ---
Nutrition Screen Note RD Recommendation for Physician: -Recommend cardiac/diabetic diet Plan of Care: RD following, monitoring for tolerance and adequacy Nutrition reason for involvement: Diagnosis - CHF Primary Diagnose(s): non-STEMI, CHF, and renal insufficiency PMH: diabetes mellitus type 2, peripheral vascular disease secondary to diabetes mellitus type 2, peripheral arterial disease status post angioplasty, ischemic right foot status post right TMA, pulmonary embolism, hypertension, and diabetic neuropathy, PAD, Diabetic foot ulcer Ht: 65 in Wt:190 lb BMI: 31.6 kg/m2 IBW:[address] Assessment: (10/17/19) Chart reviewed. Labs and meds reviewed. Pt is an 79 year old female admitted with non-STEMI, CHF, and renal insufficiency. Pt reports that she has been eating most of her meals. It is documented that pt consumed 75-100% of meals today. No weight loss reported and pt mentioned she usually weighs 195 lbs. No N/V, but pt reported she has been experiencing diarrhea. No chewing/swallowing issues. Will continue to monitor. Current Diet: Cardiac Malnutrition Evaluation (10/17/19) The patient does not meet criteria for a specified degree of malnutrition at this time. Will re-evaluate at follow-up as appropriate. Diet Education Needs Assessment: Pt was not interested in diet education materials at time of visit. Nutrition Care Level: low Signed: Merissa Torres, RD, LD
--- NOTE | 2019-10-17 16:38 | Diagnostic Imaging Report ---
EXAMINATION: CHEST SINGLE (PORTABLE) INDICATION: Shortness of breath COMPARISON: Chest radiograph 10/16/2019 FINDINGS: LINES/TUBES:EKG leads overlie the chest. LUNGS:The lungs are moderately inflated. There is perihilar fullness and indistinctness of the pulmonary vasculature. There is left basilar opacity silhouetting the left eliane diaphragm. PLEURA:Likely trace left pleural effusion. MEDIASTINUM:Cardiomediastinal silhouette is stably enlarged. BONES/SOFT TISSUES:No acute osseous injury. ABDOMEN:No free air under the diaphragm. IMPRESSION: Pulmonary interstitial edema, mildly improved from 10/16/2019. Likely trace left pleural effusion. Left basilar opacity, more likely subsegmental atelectasis than superimposed aspiration or pneumonia. Signed by: Herman Prieto MD on 10/17/2019 4:35 PM
--- NOTE | 2019-10-17 16:42 | NUR ---
RAPID RESPONSE ENDED AT 1608. NEW ORDER TO TRANSFER TO ICU. PATIENT TRANSFERRED VIA BED. BLOOD PRESSURE 97/47.
[2019-10-17] MEDS ORDERED: FUROSEMIDE INJ 10 MG/ML 2 ML VIAL IV SCH ×2 (17:00→21:00)
[2019-10-17] MEDS ORDERED: FUROSEMIDE INJ 10 MG/ML 4 ML VIAL IV SCH (17:00)
[2019-10-17] MEDS ORDERED: LIDOCAINE HCL 2% LOCAL 20 ML VIAL ONE (17:07)
[2019-10-17] MEDS ORDERED: FUROSEMIDE INJ 10 MG/ML 4 ML VIAL IV ONE ×2 (18:00→22:30)
--- NOTE | 2019-10-17 18:35 | Diagnostic Imaging Report ---
EXAMINATION: CHEST XRAY LINE PLACEMENT INDICATION: ^CVC placement ^[id number] ^1730 COMPARISON: 10/17/2019 at 1608 hours. FINDINGS: TUBES and LINES: Right IJ central venous catheter with distal tip projected on the SVC proximal to the cavoatrial junction. LUNGS: Bilateral pulmonary venous congestion and pulmonary edema mildly increased since the prior exam. PLEURA: No pneumothorax. Bilateral small pleural effusion. HEART AND MEDIASTINUM: The cardiomediastinal silhouette is unremarkable. BONES AND SOFT TISSUES: No acute osseous lesion. Soft tissues are unremarkable. UPPER ABDOMEN: No free air under the diaphragm. IMPRESSION: No acute thoracic abnormality. Signed by: Dr. Malcom Vidales M.D. on 10/17/2019 6:31 PM
--- NOTE | 2019-10-17 18:47 | Consultation ---
DATE OF CONSULTATION: 10/17/2019 Renal Consultation REASON FOR CONSULTATION: Hyperkalemia, renal insufficiency. HISTORY OF PRESENT ILLNESS: An 79-year-old female with a history of poorly controlled diabetes and hypertension, presented to [facility] with chest pain and shortness of breath. The patient states she was in her usual state of health. She has had some lower extremity edema for some time. She developed some dyspnea on exertion, which then developed shortness of breath at rest, which was accompanied by chest pain and presented to the emergency room. The patient had a chest x-ray, which showed increased pulmonary edema. The patient was admitted and Nephrology consultation was called. The patient was given medical therapy including Kayexalate, calcium, insulin, and dextrose as well as bicarbonate in the emergency room. REVIEW OF SYSTEMS: A 14-point review of systems completed. All systems negative other than mentioned in the HPI. PAST MEDICAL HISTORY: 1. Diabetes type 2. 2. Hypertension. 3. Peripheral arterial disease. PAST SURGICAL HISTORY: Had angioplasty of the SFA. SOCIAL HISTORY: No tobacco. No alcohol. No IV drugs. FAMILY HISTORY: Mother with chronic kidney disease, at age 99 on dialysis. ALLERGIES: PENICILLIN, PROMETHAZINE, AND SITAGLIPTIN. CURRENT MEDICATIONS: Include metoprolol. PHYSICAL EXAMINATION: VITAL SIGNS: Blood pressure 90/45, pulse 74, respiratory rate 18, and temperature 97. GENERAL: No apparent distress. HEENT: Oropharynx clear. No scleral icterus. No peripheral edema. NECK: Supple. Unable to assess jugular venous pressure due to body habitus. CHEST: Decreased breath sounds at bases anteriorly bilaterally. CARDIOVASCULAR: Regular rhythm. No murmurs or rubs. ABDOMEN: Soft. Positive bowel sounds. No tenderness. No rebound. EXTREMITIES: 1+ pitting edema. No clubbing. No cyanosis. SKIN: Warm. LABORATORY DATA: Sodium 131, potassium 5.7, chloride 103, CO2 17, BUN 47, creatinine 1.21, and glucose 139. Hemoglobin A1c 5.9. Albumin 2.9. Urine; negative proteinuria, 21 to 50 rbc's, greater than 50 wbc's. Chest x-ray, mild cardiomegaly with pulmonary edema. ASSESSMENT AND PLAN: 1. Acute kidney injury versus stage 3 chronic kidney disease. We will check renal ultrasound, urine studies including urine spot fldrrkj-yi-jwmcaqoawv ratio. The patient appears to have well controlled diabetes at this time, however, in the past, she has been noted to be uncontrolled from reviewing her medical records. 2. Volume overload. We will give Lasix. 3. Hyperkalemia. We will repeat potassium. May have underlying type 4 renal tubular acidosis, as the patient is acidotic. We will add sodium bicarbonate. 4. Anemia. We will check iron stores. 5. Diabetes per primary team. 6. Congestive heart failure. Cardiology consulted. We will start Lasix. MD SHANTELL Nunez/ROB /[id number]
--- NOTE | 2019-10-17 19:42 | Consultation ---
DATE OF CONSULTATION: 10/17/2019 Cardiology Consultation REQUESTING PHYSICIAN: Dr. Gant. REASON FOR CONSULTATION: [id number] myocardial infarction. HISTORY OF PRESENT ILLNESS: This is an 79-year-old woman with hypertension, hyperlipidemia, diabetes mellitus, peripheral artery disease, and chronic kidney disease, who presents with complaints of shortness of breath and chest pain. The patient reports she has been having shortness of breath and chest pain for approximately 3 days, described the chest pain as 4/10 in severity, but was unable to characterize the pain. She also endorses symptoms of orthopnea and PND. Given her symptoms, she presented to the ER for further evaluation. Troponin was noted to be elevated for which Cardiology is consulted for evaluation. REVIEW OF SYSTEMS: Negative except as per HPI. PAST MEDICAL HISTORY: 1. Hypertension. 2. Hyperlipidemia. 3. Diabetes mellitus. 4. Chronic kidney disease. 5. Peripheral arterial disease. PAST SURGICAL HISTORY: Right TMA. ALLERGIES: PLEASE SEE EMR. MEDICATIONS: Please see medication list. SOCIAL HISTORY: Denies tobacco, alcohol, or illicit drugs. FAMILY HISTORY: Denies family history of cardiac disease. PHYSICAL EXAMINATION: VITAL SIGNS: Temperature 96.3 degrees, pulse 87, respiratory rate 18, blood pressure 101/49, and oxygen saturation 98% on 3 L nasal cannula. GENERAL: Elderly woman, in no acute distress. Awake and alert. HEENT: Normocephalic and atraumatic. Pupils are equal. No scleral icterus. NECK: Supple. No thyroid or cervical lymphadenopathy. No carotid bruits. LUNGS: Clear to auscultation bilaterally. No wheezes or crackles. CARDIOVASCULAR: Normal rate. Regular rhythm. Normal S1 and S2. 2/6 systolic murmur. ABDOMEN: Soft and nontender. EXTREMITIES: 1+ pitting edema. NEUROLOGIC: Nonfocal exam. LABORATORY DATA: WBC 10.5, hemoglobin 8.7, hematocrit 26.3, and platelets 211. Sodium 131, potassium 5.7, chloride 103, CO2 is 17, BUN 47, and creatinine 1.21. Troponin 1.532. Chest x-ray, mild cardiomegaly and pulmonary edema with small pleural effusions. Superimposed pneumonia is possible. EKG, sinus bradycardia, low voltage QRS, nonspecific ST and T-wave abnormality. IMPRESSION: 1. Acute congestive heart failure. 2. Elevated troponin. 3. Acute kidney injury. 4. Diabetes mellitus. 5. Hypertension. 6. Hyperlipidemia. 7. Peripheral arterial disease. RECOMMENDATIONS: Obtain echocardiogram. Troponin elevation is not consistent with ACS. Suspect elevation secondary to CHF as well as MICHELLE. However, the patient will need ischemic evaluation once her volume status improved and renal function stabilizes. Appreciate Nephrology input. Agree with diuretics. Continue current cardiac medications otherwise. Monitor the patient closely on telemetry. Thank you for this consult. We will continue to follow. Luli Prince MD [facility]/MODL /[id number]
[2019-10-17 19:44] LABS: HEMATOCRIT 24.8 % (34.2-44.1); HEMOGLOBIN 7.9 g/dL (12.0-16.0); MEAN CORPUSCULAR HEMOGLOBIN 31.9 pg (28-32); MEAN CORPUSCULAR HGB CONC 31.9 g/dL (31-35); PLATELET COUNT 195 x10e3/uL (140-360); RED BLOOD COUNT 2.48 x10e6/uL (3.6-5.1); RED CELL DISTRIBUTION WIDTH 12.8 % (11.7-14.4)
--- NOTE | 2019-10-17 19:45 | NUR ---
Patient received from [facility] 1 after rapid response and is hypotensive. Dr. Blanca Youssef at bedside to insert CVC line. Consent obtained from the patient, family member at bedside. Stat chest x ray ordered after line placement. Dr. Prince came and assessed patient, Dopamine drip, lasix ordered, repeat labs cmp, cbc, cardiac enzymes, lactic acid ordered. Dopamine drip not started due to awaiting chest x ray results. Will continue to monitor the patient. See vital signs for blood pressure trend.
[2019-10-17 20:17] LABS: ALBUMIN 2.8 g/dL (3.5-5.0); ANION GAP 13.5 mmol/L (8-16); CALCIUM 8.4 mg/dL (8.4-10.2); CREATININE, SERUM 1.54 mg/dL (0.57-1.11); POTASSIUM 4.5 mmol/L (3.5-5.1)
--- NOTE | 2019-10-17 20:37 | Operative Report ---
DATE OF PROCEDURE: 10/17/2019 SURGEON: Surendra Youssef MD PREOPERATIVE DIAGNOSIS: Acute kidney injury. POSTOPERATIVE DIAGNOSIS: Acute kidney injury. CONSENT: Consent was obtained from the patient and the family. ANESTHESIA: 1% lidocaine was used for local anesthesia. DESCRIPTION OF PROCEDURE: The patient was placed in the supine position. An ultrasound was used to locate the right internal jugular vein. The area was then prepped sterilely. A full-length drape was used along with the mask, sterile gown, and sterile gloves. The area between the heads of the sternocleidomastoid was anesthetized with 1% lidocaine. The right internal jugular vein was then cannulated under direct visualization with a 16-gauge needle. A wire was passed through the needle and a dilator was used to open the skin. A triple-lumen catheter was then passed over the wire by the Seldinger technique. All the ports flushed. COMPLICATIONS: None. ESTIMATED BLOOD LOSS: None. Surendra Youssef MD [facility]/MODL /[id number]
[2019-10-17 21:12] LABS: HEMATOCRIT 23.9 % (34.2-44.1); HEMOGLOBIN 7.8 g/dL (12.0-16.0)
[2019-10-17 21:40] LABS: CREATINE KINASE MB 4.5 ng/mL (0-5.0)
--- NOTE | 2019-10-17 22:18 | Consultation ---
DATE OF CONSULTATION: 10/17/2019 Pulmonary Critical Care Consultation HISTORY OF PRESENT ILLNESS: The patient is an 79-year-old woman. She has a history of diabetes as well as anemia. She also had a pulmonary embolism about a year ago that was treated with anticoagulation. She has peripheral vascular disease and has required a peripheral angioplasty in the past. The patient came to the hospital yesterday complaining of dizziness as well as more difficulty breathing and some swelling in her legs. She notes no chest pain. She was on the medical che being evaluated by Cardiology when she became dizzier. She had low blood pressure with a systolic of 70 to 80 and a Rapid Response was called. She was transferred to the unit. PAST SURGICAL HISTORY: 1. Status post right TMA. 2. Status post angioplasty of the right lower extremity. SOCIAL HISTORY: The patient is not an active smoker. She is not a drinker. FAMILY HISTORY: Significant for hypertension and diabetes. ALLERGIES: THE PATIENT IS ALLERGIC TO PENICILLIN AND PROMETHAZINE. REVIEW OF SYSTEMS: She has no fever. She is not having any headache or neck pain. She does not complain of chest pain. She does note some difficulty breathing. She has no chest pain. She has no abdominal pain. She does have some leg edema. She has no nausea or vomiting. PHYSICAL EXAMINATION: VITAL SIGNS: Blood pressure is 92/45 and the pulse is 50 to 55. Saturation is 99%. HEENT: Shows no facial swelling or erythema. CARDIAC: Reveals a regular rate and rhythm with normal S1 and S2. There are no murmurs or rubs heard. LUNGS: Auscultation of lungs reveals clear breath sounds bilaterally. There is no wheezing. ABDOMEN: Soft and nontender. There is no rebound or guarding. EXTREMITIES: Does show 1 to 2+ leg edema. NEUROLOGICAL: Shows no focal abnormalities. LABORATORY DATA: White blood cell count is 10.5, hemoglobin is 8.7, the platelet count is 211. The BUN and creatinine are 47 to 1.21. The sodium is 131, carbon dioxide is 17, and the chloride is 103. Troponin I is 1.5. RADIOGRAPHIC DATA: Chest x-ray shows cardiomegaly and some mild pulmonary edema. IMPRESSION: 1. Unstable angina. 2. Bradycardia with a junctional rhythm. 3. Acute diastolic heart failure. 4. Acute kidney injury. 5. Remote history of pulmonary embolism. 6. Peripheral vascular disease. 7. Diabetes. PLAN: 1. The patient will require low-dose dopamine to increase her heart rate and blood pressure. 2. Continue her diuresis and current cardiac regimen. 3. Complete cardiac evaluation. 4. Continue her current antibiotics for urinary tract infection. MD BARTOLO Romero/ROB /[id number]
[2019-10-18] VITALS (23 sets, daily range): BP systolic 72–136; BP diastolic 37–69
[2019-10-18] MEDS ORDERED: ONDANSETRON HCL INJ 2MG/ML 2ML 2 MG/ML VIAL IV STA (00:26)
[2019-10-18] MEDS ORDERED: ONDANSETRON HCL INJ 2MG/ML 2ML 2 MG/ML VIAL IV PRN ×2 (00:30→02:30)
[2019-10-18] MEDS: AZTREONAM (AZACTAM) 0.5 GM in SODIUM CHLORIDE 0.9% 50ML 50 ML IV SCH ×3 (01:49→16:58)
[2019-10-18 02:47] LABS: TOTAL PROTEIN, URINE 12.8 mg/dL (1-14)
[2019-10-18 03:13] LABS: CREATININE,URINE RANDOM 104.61 mg/dL (47-110)
[2019-10-18 05:32] LABS: BASOPHILS % 0.5 % (0.0-1.0); EOSINOPHILS # (AUTO) 0.1 (0.0-0.4); EOSINOPHILS % 0.6 % (0.0-6.0); HEMOGLOBIN 7.3 g/dL (12.0-16.0); LYMPHOCYTES # (AUTO) 1.1 (1.0-3.2); LYMPHOCYTES % 13.2 % (18.0-39.1); MEAN CORPUSCULAR HEMOGLOBIN 31.9 pg (28-32); MEAN CORPUSCULAR HGB CONC 32.4 g/dL (31-35); MEAN CORPUSCULAR VOLUME 98.3 fL (81-99); MONOCYTES # (AUTO) 0.5 (0.2-0.8); MONOCYTES % 6.3 % (4.4-11.3); NEUTROPHILS # (AUTO) 6.5 (2.1-6.9); PLATELET COUNT 188 x10e3/uL (140-360); RED BLOOD COUNT 2.29 x10e6/uL (3.6-5.1); RED CELL DISTRIBUTION WIDTH 12.9 % (11.7-14.4)
[2019-10-18 05:36] LABS: HEMATOCRIT 22.5 % (34.2-44.1)
[2019-10-18 05:53] LABS: ALBUMIN 2.7 g/dL (3.5-5.0); ALBUMIN/GLOBULIN RATIO 1.1 (0.8-2.0); CALCIUM 8.4 mg/dL (8.4-10.2); CREATININE, SERUM 1.52 mg/dL (0.57-1.11); MAGNESIUM 1.8 MG/DL (1.3-2.1)
[2019-10-18 06:15] LABS: FERRITIN 1591.09 ng/mL (4.63-204.00)
[2019-10-18] MEDS: INSULIN LISPRO 100 UNIT/1 ML 3ML VIAL SQ SCH ×4 (07:30→21:58)
[2019-10-18] MEDS: INSULIN REGULAR, HUMAN 100 UNIT/1 ML 3ML VIAL SQ SCH ×4 (07:30→21:58)
--- NOTE | 2019-10-18 08:06 | NUR ---
IM- progress note O/N see below REVIEW OF SYSTEMS: Denies any dizziness, chest pain, shortness of breath, fever, chills, sweats, nausea, vomiting, or diarrhea. PHYSICAL EXAMINATION VITAL SIGNS: Reviewed. GENERAL: A tired-appearing woman, resting in bed. HEENT: Anicteric. CARDIOVASCULAR: Normal S1 and S2. LUNGS: Reduced BS ABDOMEN: Soft and nondistended. EXTREMITIES: Right TMA; healed; Trace leg edema SKIN: Dry. PSYCHIATRIC: Normal affect. NEUROLOGICAL: Alert and oriented x3. Moving all extremities. LABS: Reviewed. MEDICATIONS: Reviewed. ASSESSMENT: 79yoF NSTEMI PNA DM2 HTN HLD Hx Pulmonary embolism PLAN Cardio eval; Echo; will need further eval; Lovenox BID hab1c/lipids Use IV abx PT consult; AC; GI prop. 10-18-19 Moved to ICU due to hypotension; Hb trending down; Hba1c/LDL 5.9/56; continued renal mgmt; Septic shock - continued mgmt in ICU; cct>35mins Lucien Gant MD, PhD.
[2019-10-18] MEDS: FAMOTIDINE 20 MG TAB PO SCH ×2 (08:55→16:57)
[2019-10-18] MEDS: METOPROLOL SUCCINATE 50 MG TAB XL PO SCH (09:00)
--- NOTE | 2019-10-18 09:04 | Diagnostic Imaging Report ---
EXAM: Renal Ultrasound INDICATION: ^ckd ^Y COMPARISON: None TECHNIQUE: Transverse and longitudinal images of the kidneys and bladder were obtained. FINDINGS: Right Kidney: Length: 8.7 cm Appearance: Normal echogenicity. Collecting system: No hydronephrosis Stones: None Cyst/Mass: None Left Kidney: Length: 9.1 cm Appearance: Normal echogenicity. Collecting system: No hydronephrosis Stones: None Cyst/Mass: None Bladder: Degroot catheter in the decompressed bladder. IMPRESSION: No hydronephrosis or renal calculi. Signed by: Herman Prieto MD on 10/18/2019 9:01 AM
[2019-10-18] MEDS: CLOPIDOGREL BISULFATE 75 MG TAB PO SCH (09:25)
--- NOTE | 2019-10-18 10:30 | Progress Note ---
DATE: 10/18/2019 Pulmonary Critical Care Progress Note SUBJECTIVE: The patient was started on dopamine last night, but had some vomiting. The staff subsequently stopped the dopamine. She received additional Lasix in her -1 liter. The patient has had some irregular heart rhythms with intermittent bradycardia and tachycardia. PHYSICAL EXAMINATION: VITAL SIGNS: The patient is afebrile. The blood pressure is 91/48 and the saturation is 100% on 3 liters. The pulse is 58. HEENT: Shows no facial swelling or erythema. CARDIAC: Reveals regular rate and rhythm with normal S1 and S2. PULMONARY: Auscultation of lungs reveal crackles at both bases. There is no wheezing. ABDOMEN: Soft and nontender. There is no rebound or guarding. EXTREMITIES: Show some mild edema in the hands. LABORATORY DATA: White blood cell count is 8.25, hemoglobin is 7.3, and the platelet count is 188. The BUN to creatinine ratio is 44 to 1.52 and the sodium is 134. The CO2 is 51. The troponin I is 1.78. The albumin is 2.7. IMPRESSION: 1. Acute systolic congestive heart failure. 2. Acute kidney injury. 3. Elevated troponin of unclear significance. 4. Intermittent bradycardia with junctional rhythm. 5. Diabetes. 6. Remote history of peripheral vascular disease. PLAN: 1. Continue diuretics. 2. Monitor electrolytes and blood counts. 3. Discuss potential need for catheterization with Cardiology. 4. Resume current cardiac regimen. 5. Case discussed with the patient, family, nursing staff, Cardiology, and Dr. Gant. 6. Greater than 35 minutes in direct critical care time. Surendra Youssef MD [facility]/MODL /[id number]
[2019-10-18 10:37] LABS: CREATINE KINASE MB 3.9 ng/mL (0-5.0)
[2019-10-18] MEDS: AZITHROMYCIN 250MG/NS 100 ML 100 ML IV SCH (14:11)
[2019-10-18] MEDS: FUROSEMIDE INJ 10 MG/ML 4 ML VIAL IV SCH ×2 (16:57→21:56)
--- NOTE | 2019-10-18 19:59 | Progress Note ---
DATE: 10/18/2019 Cardiology Progress Note SUBJECTIVE: The patient denies chest pain. Her shortness of breath has improved. OBJECTIVE: VITAL SIGNS: Temperature 98.9 degrees, pulse 64, respiratory rate 16, blood pressure 119/51, and oxygen saturation 100% on 3 L nasal cannula. GENERAL: Awake and alert, in no acute distress. LUNGS: Clear to auscultation bilaterally. No wheeze or crackles. CARDIOVASCULAR: Normal rate. Regular rhythm. Normal S1 and S2. A 2/6 systolic murmur. ABDOMEN: Soft and nontender. EXTREMITIES: 1+ pitting edema. CARDIAC MEDICATIONS: Furosemide 40 mg IV t.i.d. and Plavix 75 mg p.o. daily. LABORATORY DATA: WBC 8.25, hemoglobin 7.3, hematocrit 22.5, and platelets 188. Sodium 134, potassium 4, chloride 104, CO2 21, BUN 44, and creatinine 1.52. TELEMETRY: Sinus bradycardia noted. Episode of paroxysmal atrial fibrillation with rapid ventricular response overnight as well as a conversion pause. IMPRESSION: 1. Acute congestive heart failure, diastolic. 2. Elevated troponin. 3. Acute kidney injury. 4. Diabetes mellitus. 5. Hypertension. 6. Hyperlipidemia. 7. Peripheral arterial disease. 8. Paroxysmal atrial fibrillation with conversion pause. RECOMMENDATIONS: Troponin elevation is not consistent with ACS. However, she will need ischemic evaluation once her renal function stabilizes. Discussed this with Nephrology. They feel this may be her baseline. We will monitor closely, as she is currently without symptoms. Plan cath likely Monday. Continue IV diuretics. Monitor volume status closely. Continue current cardiac medications otherwise. Monitor on telemetry. Continue anticoagulation for CVA prophylaxis. Thank you for this consult. We will continue to follow. Luli Prince MD [facility]/MODL /[id number]
[2019-10-18] MEDS: ENOXAPARIN INJ 80 MG/0.8 ML SYR SC SCH (21:56)
[2019-10-19] VITALS (26 sets, daily range): BP systolic 82–125; BP diastolic 42–76
[2019-10-19] MEDS: AZTREONAM (AZACTAM) 0.5 GM in SODIUM CHLORIDE 0.9% 50ML 50 ML IV SCH ×3 (02:17→17:17)
[2019-10-19 02:43] LABS: BASOPHILS % 0.6 % (0.0-1.0); EOSINOPHILS # (AUTO) 0.2 (0.0-0.4); EOSINOPHILS % 2.8 % (0.0-6.0); HEMATOCRIT 33.4 % (34.2-44.1); HEMOGLOBIN 10.7 g/dL (12.0-16.0); LYMPHOCYTES # (AUTO) 1.2 (1.0-3.2); LYMPHOCYTES % 21.1 % (18.0-39.1); MEAN CORPUSCULAR HEMOGLOBIN 31.8 pg (28-32); MEAN CORPUSCULAR VOLUME 99.1 fL (81-99); MONOCYTES # (AUTO) 0.5 (0.2-0.8); MONOCYTES % 8.8 % (4.4-11.3); NEUTROPHILS # (AUTO) 3.6 (2.1-6.9); NEUTROPHILS % 66.5 % (38.7-80.0); PLATELET COUNT 135 x10e3/uL (140-360); RED BLOOD COUNT 3.37 x10e6/uL (3.6-5.1); RED CELL DISTRIBUTION WIDTH 12.9 % (11.7-14.4)
[2019-10-19 02:58] LABS: ALBUMIN 2.7 g/dL (3.5-5.0); ALBUMIN/GLOBULIN RATIO 1.1 (0.8-2.0); ANION GAP 11.8 mmol/L (8-16); CALCIUM 8.8 mg/dL (8.4-10.2); CREATININE, SERUM 1.42 mg/dL (0.57-1.11); POTASSIUM 3.8 mmol/L (3.5-5.1)
--- NOTE | 2019-10-19 07:24 | Diagnostic Imaging Report ---
EXAMINATION: CHEST SINGLE (PORTABLE) INDICATION: ^CHF ^[id number] ^0600 COMPARISON: 10/17/2019 FINDINGS: AP view TUBES and LINES: Stable right IJ central line. LUNGS: Lungs are well inflated. Pulmonary vascular congestion and mild interstitial edema. PLEURA: Bilateral pleural effusions. No pneumothorax. HEART AND MEDIASTINUM: The cardiomediastinal silhouette is enlarged. BONES AND SOFT TISSUES: No acute osseous lesion. Soft tissues are unremarkable. UPPER ABDOMEN: No free air under the diaphragm. IMPRESSION: Pulmonary vascular congestion and mild additional edema. Bilateral small pleural effusions, slightly increased from prior exam. Signed by: Dr. Jovanni Lopez MD on 10/19/2019 7:20 AM
[2019-10-19] MEDS: INSULIN LISPRO 100 UNIT/1 ML 3ML VIAL SQ SCH ×4 (07:30→22:24)
[2019-10-19] MEDS: INSULIN REGULAR, HUMAN 100 UNIT/1 ML 3ML VIAL SQ SCH ×4 (07:30→21:00)
--- NOTE | 2019-10-19 07:56 | Progress Note ---
DATE: 10/19/2019 SUBJECTIVE: The patient feels much better. She has less dyspnea. She is not dizzy. She does note some pain and breakdown on her heels. She also had some irregular heart rhythms during the night. PHYSICAL EXAMINATION: VITAL SIGNS: The patient is afebrile. She is now in atrial fibrillation with a controlled rate. CARDIAC: Reveals a regular rate and rhythm with normal S1 and S2. LUNGS: Auscultation of lungs reveals clear breath sounds bilaterally. There is no wheezing. ABDOMEN: Soft, nontender. There is no rebound or guarding. 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 There are heel protectors on. There is no leg edema. LABORATORY DATA: White blood cell count is 5.4, hemoglobin is 10.7, and the platelet count is 135. The BUN to creatinine ratio is 47 to 1.42 and the other electrolytes are within normal limits. The troponin I is 2.2 and the albumin is 2.7. RADIOGRAPHIC DATA: Chest x-ray shows some mild vascular congestion with small pleural effusions. IMPRESSION: 1. Atrial fibrillation. 2. Jlcjm-id-lbrbjso systolic congestive heart failure. 3. Acute kidney injury. 4. Diabetes mellitus. 5. Hypertension. PLAN: 1. Continue current cardiac regimen. 2. Continue to monitor creatinine. 3. Ativan as tolerated. 4. Heel protectors. 5. Complete coronary evaluation as an outpatient. Surendra Youssef MD [facility]/MODL /[id number]
--- NOTE | 2019-10-19 07:56 | NUR ---
IM- progress note O/N see below REVIEW OF SYSTEMS: Denies any dizziness, chest pain, shortness of breath, fever, chills, sweats, nausea, vomiting, or diarrhea. PHYSICAL EXAMINATION VITAL SIGNS: Reviewed. GENERAL: A tired-appearing woman, resting in bed. HEENT: Anicteric. CARDIOVASCULAR: Normal S1 and S2. LUNGS: Reduced BS ABDOMEN: Soft and nondistended. EXTREMITIES: Right TMA; healed; Trace leg edema SKIN: Dry. PSYCHIATRIC: Normal affect. NEUROLOGICAL: Alert and oriented x3. Moving all extremities. LABS: Reviewed. MEDICATIONS: Reviewed. ASSESSMENT: 79yoF NSTEMI PNA DM2 HTN HLD Hx Pulmonary embolism PLAN Cardio eval; Echo; will need further eval; Lovenox BID hab1c/lipids Use IV abx PT consult; AC; GI prop. 1-3-20 Moved to ICU due to hypotension; Hb trending down; Hba1c/LDL 5.9/56; continued renal mgmt; Septic shock - continued mgmt in ICU; cct>35mins 1-4 Hb better; Pleural effusion B/L- small; Lucien Gant MD, PhD.
[2019-10-19] MEDS: FAMOTIDINE 20 MG TAB PO SCH ×2 (08:55→17:17)
[2019-10-19] MEDS: CLOPIDOGREL BISULFATE 75 MG TAB PO SCH (08:56)
[2019-10-19] MEDS: FUROSEMIDE INJ 10 MG/ML 4 ML VIAL IV SCH ×3 (08:56→22:21)
[2019-10-19] MEDS: DOCUSATE SODIUM 100 MG CAP PO SCH ×2 (08:56→17:18)
[2019-10-19] MEDS: METOPROLOL SUCCINATE 50 MG TAB XL PO SCH (09:00)
[2019-10-19] MEDS: ENOXAPARIN INJ 80 MG/0.8 ML SYR SC SCH ×2 (10:00→22:21)
[2019-10-19] MEDS: AZITHROMYCIN 250MG/NS 100 ML 100 ML IV SCH (14:55)
--- NOTE | 2019-10-19 18:44 | Progress Note ---
DATE: 10/19/2019 Cardiology Progress Note OBJECTIVE: VITAL SIGNS: Temperature is 98, heart rate is 61, however, ranges up to 103, blood pressure is 98/43, and oxygen saturation 100% on 3 L nasal cannula. GENERAL: Well-appearing, in no apparent distress. CARDIOVASCULAR: Irregularly irregular. At times, regular rate and rhythm on the same examination. LUNGS: Clear to auscultation. ABDOMEN: Soft, nontender, and nondistended. EXTREMITIES: No edema. CARDIOVASCULAR MEDICATIONS: Reviewed. LABORATORY DATA: Reviewed. Hemoglobin 10.7. Creatinine 1.42. Troponin 2.2. Telemetry monitoring revealed episodes of atrial fibrillation when converting to sinus rhythm, she has a 2.5 second pauses. IMPRESSION: 1. Acute diastolic congestive heart failure. 2. Khm-KB-pdbpsbgpn myocardial infarction. 3. Acute kidney injury, improved. 4. Diabetes mellitus. 5. Hypertension. 6. Hyperlipidemia. 7. Peripheral arterial disease. 8. Paroxysmal atrial fibrillation with conversion pauses. RECOMMENDATIONS: Continue therapeutic Lovenox. We will need coronary angiography likely on Monday. Her creatinine appears to be stable. Her troponins are stable and not rising. She continues to remain asymptomatic. Continue intravenous Lasix for diuresis. Monitor creatinine closely. Continue to monitor closely on telemetry. No need for pacemaker at this point in time. Andre Soliz DO [facility]/MODL /[id number]
[2019-10-20] VITALS (25 sets, daily range): BP systolic 90–121; BP diastolic 34–84
[2019-10-20] MEDS: AZTREONAM (AZACTAM) 0.5 GM in SODIUM CHLORIDE 0.9% 50ML 50 ML IV SCH ×3 (01:30→17:08)
[2019-10-20 04:58] LABS: BASOPHILS # (AUTO) 0.1 (0.0-0.1); BASOPHILS % 0.6 % (0.0-1.0); EOSINOPHILS # (AUTO) 0.3 (0.0-0.4); EOSINOPHILS % 3.6 % (0.0-6.0); HEMOGLOBIN 7.5 g/dL (12.0-16.0); LYMPHOCYTES # (AUTO) 1.7 (1.0-3.2); LYMPHOCYTES % 22.2 % (18.0-39.1); MEAN CORPUSCULAR HEMOGLOBIN 32.1 pg (28-32); MEAN CORPUSCULAR HGB CONC 32.8 g/dL (31-35); MEAN CORPUSCULAR VOLUME 97.9 fL (81-99); MONOCYTES # (AUTO) 0.7 (0.2-0.8); MONOCYTES % 8.6 % (4.4-11.3); NEUTROPHILS % 64.6 % (38.7-80.0); PLATELET COUNT 192 x10e3/uL (140-360); RED BLOOD COUNT 2.34 x10e6/uL (3.6-5.1); RED CELL DISTRIBUTION WIDTH 12.9 % (11.7-14.4)
[2019-10-20 05:16] LABS: HEMATOCRIT 22.9 % (34.2-44.1)
[2019-10-20 05:23] LABS: ALBUMIN 2.6 g/dL (3.5-5.0); ALBUMIN/GLOBULIN RATIO 1.1 (0.8-2.0); ANION GAP 12.6 mmol/L (8-16); CALCIUM 8.9 mg/dL (8.4-10.2); CREATININE, SERUM 1.17 mg/dL (0.57-1.11); MAGNESIUM 1.6 MG/DL (1.3-2.1); PHOSPHORUS 3.7 MG/DL (2.3-4.7); POTASSIUM 3.6 mmol/L (3.5-5.1)
[2019-10-20] MEDS: INSULIN LISPRO 100 UNIT/1 ML 3ML VIAL SQ SCH ×4 (07:27→22:40)
[2019-10-20] MEDS: INSULIN REGULAR, HUMAN 100 UNIT/1 ML 3ML VIAL SQ SCH ×4 (07:28→22:40)
[2019-10-20] MEDS: METOPROLOL SUCCINATE 50 MG TAB XL PO SCH (09:00)
[2019-10-20] MEDS: DOCUSATE SODIUM 100 MG CAP PO SCH ×2 (09:30→17:09)
[2019-10-20] MEDS: FAMOTIDINE 20 MG TAB PO SCH ×2 (09:30→17:08)
[2019-10-20] MEDS: CLOPIDOGREL BISULFATE 75 MG TAB PO SCH (09:30)
--- NOTE | 2019-10-20 09:47 | NUR ---
IM- progress note O/N see below REVIEW OF SYSTEMS: Denies any dizziness, chest pain, shortness of breath, fever, chills, sweats, nausea, vomiting, or diarrhea. PHYSICAL EXAMINATION VITAL SIGNS: Reviewed. GENERAL: A tired-appearing woman, resting in bed. HEENT: Anicteric. CARDIOVASCULAR: Normal S1 and S2. LUNGS: Reduced BS ABDOMEN: Soft and nondistended. EXTREMITIES: Right TMA; healed; Trace leg edema SKIN: Dry. PSYCHIATRIC: Normal affect. NEUROLOGICAL: Alert and oriented x3. Moving all extremities. LABS: Reviewed. MEDICATIONS: Reviewed. ASSESSMENT: 79yoF NSTEMI PNA DM2 HTN HLD Hx Pulmonary embolism PLAN Cardio eval; Echo; will need further eval; Lovenox BID hab1c/lipids Use IV abx PT consult; AC; GI prop. 1-3-20 Moved to ICU due to hypotension; Hb trending down; Hba1c/LDL 5.9/56; continued renal mgmt; Septic shock - continued mgmt in ICU; cct>35mins 1-4 Hb better; Pleural effusion B/L- small; 1-5 recheck Hb this pm. Renal fn improving; Lucien Gant MD, PhD.
[2019-10-20] MEDS: ENOXAPARIN INJ 80 MG/0.8 ML SYR SC SCH ×2 (10:27→21:58)
[2019-10-20] MEDS: FUROSEMIDE INJ 10 MG/ML 4 ML VIAL IV SCH ×3 (11:00→21:58)
--- NOTE | 2019-10-20 11:13 | Progress Note ---
DATE: 10/20/2019 Cardiology Progress Note. SUBJECTIVE: The patient is feeling well. Denies any chest pain or shortness of breath or palpitations. OBJECTIVE: VITAL SIGNS: Temperature is 98.0, heart rate is 71, respirations are 23, blood pressure is 109/49, oxygen saturation 100% on 2 L nasal cannula. GENERAL: She is an elderly appearing woman, lying comfortably in bed, no apparent distress. CARDIOVASCULAR: She has regular rate and rhythm with ectopy. LUNGS: Diminished breath sounds at bases. ABDOMEN: Soft, nontender, nondistended. EXTREMITIES: No edema. CARDIOVASCULAR MEDICATIONS: Reviewed. LABORATORY DATA: Reviewed, hemoglobin is 7.5, creatinine is 1.17. Troponin is 2.2. TELEMETRY: Monitoring revealed episodes of atrial fibrillation with conversion to sinus rhythm with subsequent pauses. IMPRESSION: 1. Acute diastolic congestive heart failure. 2. Qpb-AA-jjunghjxl myocardial infarction. 3. Acute kidney injury, improved. 4. Hypertension. 5. Hyperlipidemia. 6. Diabetes mellitus. 7. Peripheral artery disease. 8. Paroxysmal atrial fibrillation with conversion pauses. 9. Anxiety. RECOMMENDATIONS: Continue therapeutic Lovenox, hold tonight and tomorrow morning's doses. She appears more stable and is able to lay flat. Her creatinine has improved. Continue current cardiovascular medications. Monitor closely on telemetry, given her conversion pauses. The patient likely is stable enough to undergo coronary angiography tomorrow only if her hemoglobin has increased. We will continue to follow along closely. DO MAEGAN Morrow/CHARLOTTEL /[id number]
--- NOTE | 2019-10-20 12:38 | Progress Note ---
DATE: 10/20/2019 SUBJECTIVE: The patient is seen by Cardiology, scheduled for catheterization tomorrow. PHYSICAL EXAMINATION: VITAL SIGNS: The patient is afebrile. The blood pressure is 96/40, and saturation is 100% on 2 L. Heart rate 71. HEENT: Shows no facial swelling or erythema. CARDIAC: Reveals a regular rate and rhythm with normal S1, S2. There are no murmurs or rubs heard. LUNGS: Auscultation of lungs reveals clear breath sounds bilaterally. There is no wheezing. ABDOMEN: Soft, nontender. There is no rebound or guarding. EXTREMITIES: Show no leg edema or calf tenderness. IMPRESSION: 1. Non-ST elevation myocardial infarction. 2. Atrial fibrillation. 3. Acute diastolic heart failure. 4. Acute kidney injury. 5. Diabetes. PLAN: 1. Await cardiac catheterization. 2. Continue current cardiac medications. 3. Continue oxygen. MD BARTOLO Romero/ROB /[id number]
[2019-10-20] MEDS: AZITHROMYCIN 250MG/NS 100 ML 100 ML IV SCH (14:00)
[2019-10-20 16:04] LABS: HEMOGLOBIN 8.5 g/dL (12.0-16.0)
[2019-10-21] VITALS (26 sets, daily range): BP systolic 97–126; BP diastolic 39–91
[2019-10-21] MEDS: AZTREONAM (AZACTAM) 0.5 GM in SODIUM CHLORIDE 0.9% 50ML 50 ML IV SCH ×3 (01:00→16:51)
[2019-10-21] MEDS: ENOXAPARIN INJ 80 MG/0.8 ML SYR SC SCH (05:09)
[2019-10-21 05:19] LABS: BASOPHILS # (AUTO) 0.1 (0.0-0.1); BASOPHILS % 0.8 % (0.0-1.0); EOSINOPHILS # (AUTO) 0.2 (0.0-0.4); EOSINOPHILS % 2.8 % (0.0-6.0); HEMATOCRIT 23.1 % (34.2-44.1); HEMOGLOBIN 7.4 g/dL (12.0-16.0); LYMPHOCYTES # (AUTO) 1.4 (1.0-3.2); LYMPHOCYTES % 17.2 % (18.0-39.1); MEAN CORPUSCULAR HEMOGLOBIN 31.8 pg (28-32); MEAN CORPUSCULAR VOLUME 99.1 fL (81-99); MONOCYTES # (AUTO) 0.7 (0.2-0.8); NEUTROPHILS # (AUTO) 5.6 (2.1-6.9); NEUTROPHILS % 69.8 % (38.7-80.0); PLATELET COUNT 217 x10e3/uL (140-360); RED BLOOD COUNT 2.33 x10e6/uL (3.6-5.1); RED CELL DISTRIBUTION WIDTH 12.9 % (11.7-14.4)
[2019-10-21 05:29] LABS: ANION GAP 12.8 mmol/L (8-16); CALCIUM 8.8 mg/dL (8.4-10.2); CREATININE, SERUM 1.02 mg/dL (0.57-1.11); POTASSIUM 3.8 mmol/L (3.5-5.1)
[2019-10-21] MEDS: FAMOTIDINE 20 MG TAB PO SCH ×2 (07:30→16:21)
[2019-10-21] MEDS: INSULIN LISPRO 100 UNIT/1 ML 3ML VIAL SQ SCH ×4 (07:30→21:02)
[2019-10-21] MEDS: INSULIN REGULAR, HUMAN 100 UNIT/1 ML 3ML VIAL SQ SCH ×4 (07:30→21:00)
[2019-10-21] MEDS: CLOPIDOGREL BISULFATE 75 MG TAB PO SCH (08:01)
[2019-10-21] MEDS: FUROSEMIDE INJ 10 MG/ML 4 ML VIAL IV SCH ×3 (08:01→21:05)
--- NOTE | 2019-10-21 08:54 | NUR ---
IM- progress note O/N see below REVIEW OF SYSTEMS: Denies any dizziness, chest pain, shortness of breath, fever, chills, sweats, nausea, vomiting, or diarrhea. PHYSICAL EXAMINATION VITAL SIGNS: Reviewed. GENERAL: A tired-appearing woman, resting in bed. HEENT: Anicteric. CARDIOVASCULAR: Normal S1 and S2. LUNGS: Reduced BS ABDOMEN: Soft and nondistended. EXTREMITIES: Right TMA; healed; Trace leg edema SKIN: Dry. PSYCHIATRIC: Normal affect. NEUROLOGICAL: Alert and oriented x3. Moving all extremities. LABS: Reviewed. MEDICATIONS: Reviewed. ASSESSMENT: 79yoF NSTEMI PNA DM2 HTN HLD Hx Pulmonary embolism PLAN Cardio eval; Echo; will need further eval; Lovenox BID hab1c/lipids Use IV abx PT consult; AC; GI prop. 1--20 Moved to ICU due to hypotension; Hb trending down; Hba1c/LDL 5.9/56; continued renal mgmt; Septic shock - continued mgmt in ICU; cct>35mins 1-4 Hb better; Pleural effusion B/L- small; 1-5 recheck Hb this pm. Renal fn improving; 1-6 renal fn continues to improve; heart procedure pending; - reported as negative; Lucien Gant MD, PhD.
[2019-10-21] MEDS: DOCUSATE SODIUM 100 MG CAP PO SCH ×2 (09:00→16:21)
[2019-10-21] MEDS: METOPROLOL SUCCINATE 50 MG TAB XL PO SCH (09:00)
[2019-10-21] MEDS ORDERED: VERAPAMIL HCL 2.5 MG/ML 2 ML VIAL ONE (09:37)
[2019-10-21] MEDS ORDERED: MIDAZOLAM HCL 2 MG/2 ML VIAL ONE (09:37)
[2019-10-21] MEDS ORDERED: IOPAMIDOL 370 MG/ML 200 ML INFUS..BTL INJ ONE (09:38)
[2019-10-21] MEDS ORDERED: HEPARIN SOD/SOD CHLORIDE 2,000 ML ONE (09:38)
[2019-10-21] MEDS ORDERED: SODIUM CHLORIDE 0.9% 1000ML 1,000 ML ONE (09:38)
[2019-10-21] MEDS ORDERED: FENTANYL CITRATE/PF 100MCG/2 ML INJ ONE (09:38)
[2019-10-21] MEDS ORDERED: LIDOCAINE HCL 2% LOCAL 20 ML VIAL ONE (09:38)
--- NOTE | 2019-10-21 11:29 | Progress Note ---
DATE: 10/21/2019 Cardiology Progress Note SUBJECTIVE: No major events overnight. Had a heart cath this morning. OBJECTIVE: VITAL SIGNS: Temperature afebrile, pulse 88, respiratory rate 19, blood pressure 105/51, and saturating 100% on 2 L nasal cannula. GENERAL: Elderly female, well-developed, well-nourished, in no acute distress. CARDIOVASCULAR: Irregular rate and rhythm. No murmurs, rubs, or gallops. LUNGS: Clear to auscultation anteriorly. ABDOMEN: Soft, nontender, and nondistended. NEURO AND PSYCH: Alert and oriented to person, place, and time. Normal affect. INPATIENT MEDICATIONS: Reviewed. LABORATORY DATA: Reviewed. Hemoglobin is stable at 7.5. TELEMETRY DATA: Reviewed, shows atrial fibrillation, rate controlled. ASSESSMENT AND PLAN: 1. Aolpx-tr-crtjsqe diastolic congestive heart failure. 2. Non-ST elevation myocardial infarction. 3. Acute kidney injury, improving. 4. Hypertension. 5. Hyperlipidemia. 6. Diabetes. 7. Peripheral arterial disease, status post right TMA. 8. Paroxysmal atrial fibrillation. 9. Anxiety. RECOMMENDATIONS: Had coronary angiography today shows diffuse multivessel disease, not amenable to intervention. Continue medical therapy with Plavix. We will add anticoagulation for atrial fibrillation with apixaban 2.5 mg b.i.d. Okay to be discharged from a CV standpoint when other medical issues resolve. Follow up in clinic 1 to 2 weeks post discharge. MD MICHAEL Ang/ROB /[id number]
--- NOTE | 2019-10-21 13:29 | NUR ---
DISCUSSED IN MDR'S CATH NEGATIVE CLEARED BY CARDIO TO DC HOME SPOKE WITH JOSEPH REGARDING POSSIBLILITY OF DC HOME TODAY AFTER CLEARED BY OTHERS
[2019-10-21] MEDS: AZITHROMYCIN 250MG/NS 100 ML 100 ML IV SCH (13:46)
[2019-10-21] MEDS: APIXAB 2.5 MG TABLET PO SCH (16:21)
--- NOTE | 2019-10-21 16:34 | NUR ---
WOUND CARE INITIAL CONSULTATION FOR 79 YEAR OLD FEMALE ADMITTED TO [facility] WITH A DX OF NON-STEMI, CHF AND RENAL INSUFFICIENCY. KARIN 15, PT IS ON MODERATE PUP ON A ALTERNATING PRESSURE MATTRESS. LABS: WBC 9.93, HGB 7.4 AND GLUCOSE 83 MICRO URINE CULTURE: KLEBSIELLA PNEUMONIAE. SKIN ASSESSMENT COMPLETED PATIENT PRESENTS WITH R BKA STUMP HEALED SCAB. MEASURING 5 CM X 0.6 CM. NO DRAINAGE PRESENT AND A TENDER LEFT HEEL. NON SOGGY HEEL PRESENT, BLANCHABLE, NO SKIN BREAKDOWN PRESENT. PT IS INSTRUCTED TO MAINTAIN BILATERAL HEEL PROTECTORS AND PILLOW SUSPENSION IN PLACE. PT CURRENTLY RECEIVES WOUND CARE AT [facility] IN [place] PER FAMILY INFORMATION. RECOMMENDATIONS: NURSING TO CONTINUE TO MAINTAIN MODERATE PUP INTERVENTIONS. NURSING TO MAINTAIN ALTERNATING PRESSURE MATTRESS. NURSING TO TURN PT SIDE TO SIDE Q2H NURSING TO INSTRUCT PT THE IMPORTANCE OF MAINTAINING PILLOW SUSPENSION IN PLACE. NURSING TO APPLY BILATERAL PILLOW SUSPENSIONS TO BILATERAL LOWER EXTREMITIES. NURSING TO APPLY BILATERAL HEEL PROTECTOR TO RIGHT LOWER LEG. NURSING TO CONTINUE TO CONTINUE TO ASSIST PT OUT OF BED FOR MEALS ANS MUCH TOLERATED. NURSING TO CLEAN R BKA STUMP HEALED SCAB WITH NS, PAT DRY WITH 4X4 GAUZE, PAINT WITH BETADINE AND TO LET IT AIR DRY AND TO APPLY ALLEVYN FOAM TO HEAL TO RELIVE PRESSURE POINT. NURSING TO APPLY VENELEX TO LEFT HEEL AND ALLEVYN FOAM TO RELIVE PRESSURE. PT TO RESUME WOUND CARE TREATMENT UPON DISCHARGE. NURSING TO RECONSULT WOUND CARE NEEDED. Addendum: 10/21/19 at 1654 by Sharri Bhatt RN Amended: Links added.
--- NOTE | 2019-10-21 17:43 | NUR ---
Patient went for heart cath this morning, no interventions performed. Patient arrived with R radial site and TR band in place. TR band removed at 1300. No s/s of bleeding with strong pulses. Pt resumed cardiac diet. Per Dr. Gant patient can be transferred to medical surgical floor with telemetry. PT evaluation ordered. Wound care came to see patient due to redness on L heel and pt complaint of tenderness. wound care recommended heel protectors and foam dressing. Wound care performed. Patient converted from A fib back to NSR with pvcs. Will continue to monitor the patient.
--- NOTE | 2019-10-21 17:50 | Progress Note ---
DATE: 10/21/2019 SUBJECTIVE: The patient is feeling better. She still has atrial fibrillation, but the ventricular rate is controlled. The patient went for catheterization today. No significant lesions were found. PHYSICAL EXAMINATION: VITAL SIGNS: The patient is afebrile. The blood pressure is 110/40, and the saturation is 100%. The pulse is 69. CARDIAC: Shows an irregularly irregular rhythm with normal S1 and S2. LUNGS: Auscultation of lungs reveals clear breath sounds bilaterally. There is no wheezing. ABDOMEN: Soft, nontender. There is no rebound or guarding. EXTREMITIES: Show no leg edema or calf tenderness. IMPRESSION: 1. Atrial fibrillation with rapid ventricular response. 2. Acute kidney injury. 3. Sjs-ZA-mxxiybhit myocardial infarction. 4. Acute on chronic diastolic heart failure. 5. Diabetes. 6. Hypertension. PLAN: 1. Continue current cardiac regimen. 2. Transfer out of floor to floor today and continue monitoring. 3. Possible discharge home tomorrow. Surendra Youssef MD [facility]/[place] /[id number]
[2019-10-22] VITALS (8 sets, daily range): BP systolic 100–126; BP diastolic 47–98
[2019-10-22] MEDS: AZTREONAM (AZACTAM) 0.5 GM in SODIUM CHLORIDE 0.9% 50ML 50 ML IV SCH ×2 (01:24→08:17)
--- NOTE | 2019-10-22 06:17 | NUR ---
IM- progress note O/N see below REVIEW OF SYSTEMS: Denies any dizziness, chest pain, shortness of breath, fever, chills, sweats, nausea, vomiting, or diarrhea. PHYSICAL EXAMINATION VITAL SIGNS: Reviewed. GENERAL: A tired-appearing woman, resting in bed. HEENT: Anicteric. CARDIOVASCULAR: Normal S1 and S2. LUNGS: Reduced BS ABDOMEN: Soft and nondistended. EXTREMITIES: Right TMA; healed; Trace leg edema SKIN: Dry. PSYCHIATRIC: Normal affect. NEUROLOGICAL: Alert and oriented x3. Moving all extremities. LABS: Reviewed. MEDICATIONS: Reviewed. ASSESSMENT: 79yoF NSTEMI PNA DM2 HTN HLD Hx Pulmonary embolism PLAN Cardio eval; Echo; will need further eval; Lovenox BID hab1c/lipids Use IV abx PT consult; AC; GI prop. 1-3-20 Moved to ICU due to hypotension; Hb trending down; Hba1c/LDL 5.9/56; continued renal mgmt; Septic shock - continued mgmt in ICU; cct>35mins 1-4 Hb better; Pleural effusion B/L- small; 1-5 recheck Hb this pm. Renal fn improving; 1-6 renal fn continues to improve; heart procedure pending; - reported as negative; 1-7 Klebsiella UTI treated; Check H/H. d/c planning; Lucien Gant MD, PhD.
[2019-10-22 06:27] LABS: ANION GAP 13.2 mmol/L (8-16); CALCIUM 9.1 mg/dL (8.4-10.2); CREATININE, SERUM 1.3 mg/dL (0.57-1.11); POTASSIUM 4.2 mmol/L (3.5-5.1)
[2019-10-22 06:32] LABS: HEMATOCRIT 24.4 % (34.2-44.1); HEMOGLOBIN 7.7 g/dL (12.0-16.0)
[2019-10-22] MEDS: INSULIN REGULAR, HUMAN 100 UNIT/1 ML 3ML VIAL SQ SCH ×4 (07:30→21:00)
[2019-10-22] MEDS: BALSAM PERU/CASTOR OIL 60 GM OINT...G. TP SCH (08:13)
[2019-10-22] MEDS: APIXAB 2.5 MG TABLET PO SCH ×2 (08:17→16:14)
[2019-10-22] MEDS: FUROSEMIDE INJ 10 MG/ML 4 ML VIAL IV SCH (08:17)
[2019-10-22] MEDS: DOCUSATE SODIUM 100 MG CAP PO SCH ×2 (08:17→16:14)
[2019-10-22] MEDS: CLOPIDOGREL BISULFATE 75 MG TAB PO SCH (08:18)
[2019-10-22] MEDS: INSULIN LISPRO 100 UNIT/1 ML 3ML VIAL SQ SCH ×4 (08:18→21:00)
[2019-10-22] MEDS: FAMOTIDINE 20 MG TAB PO SCH ×2 (08:20→16:14)
[2019-10-22] MEDS ORDERED: SODIUM CHLORIDE 0.9% 250ML 250 ML ONE (08:33)
[2019-10-22] MEDS ORDERED: BALSAM PERU/CASTOR OIL 60 GM OINT...G. TP SCH ×2 (09:00)
[2019-10-22] MEDS: METOPROLOL SUCCINATE 50 MG TAB XL PO SCH (09:00)
--- NOTE | 2019-10-22 10:00 | NUR ---
P.TDorcas EVJESSI TODAY DISCHARGE PENDING RESULTS OF P.TDorcas FABIAN
--- NOTE | 2019-10-22 13:58 | NUR ---
Spoke to Alejandro with PT. States pt 2 person assist with transfer, NWB to right foot, also will be home alone for part of day since daughter works. Recommending SNF. CM spoke to pt at bedside regarding SNF eval order. Pt states she wants CM to speak with her daughter. Pt called her daughter on the phone. Daughter states she is on her way to the hospital at this time. Will call CM when she gets here. CM business card left at bedside.
--- NOTE | 2019-10-22 14:19 | Progress Note ---
DATE: 10/22/2019 SUBJECTIVE: The patient feels better. She is out of bed, sitting in a chair. She has no fevers. PHYSICAL EXAMINATION: VITAL SIGNS: The patient is afebrile. The blood pressure is 113/56, saturation is 100% on 2 L. HEENT: Shows no facial swelling or erythema. CARDIAC: Reveals regular rate and rhythm with normal S1, S2. LUNGS: Auscultation of lungs shows clear breath sounds bilaterally. There is no wheezing. ABDOMEN: Soft, nontender. There is no rebound or guarding. 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 IMPRESSION: 1. Atrial fibrillation. 2. Acute kidney injury. 3. Non-transmural myocardial infarction. 4. Klebsiella urinary tract infection. 5. Diabetes. 6. Hypertension. PLAN: 1. Decrease Lasix to avoid worsening renal insufficiency. 2. Continue to wean oxygen. 3. Continue Eliquis. 4. Change to p.o. antibiotics. 5. Discussed disposition with Dr. Gant and Case Management. Surendra Youssef MD [facility] /[id number]
--- NOTE | 2019-10-22 14:51 | NUR ---
Spoke to pt's fili Yohana Toni at bedside. Explained PT's recommendation and services provided at a SNF. Ms. Muñoz states she is on the fence about having her mom go to a SNF. States she thinks pt may recuperate faster in the comfort of her own home. Ms. Muñoz inquired about getting services at home. CM explained SNF vs HH. She acknowledge understanding. States she is leaning towards going home, but will talk to her mom to see what she prefers. She also stated that she previously paid for a provider privately and will do that again if needed if pt discharges home. CM left list of in network SNFs. Daughter states will call CM once they make a decision.
--- NOTE | 2019-10-22 18:56 | NUR ---
Cardiology aware of patient converting from afib to NSR with up to 5 second long pauses. Patient worked with physical therapy today. Family concerned about patient going home too soon and not having anyone at home to help her. Dr. Gant ordered SNF evaluation. Orders given to d/c Zane. Degroot removed at 1600, pt due to void at 2200. Patient transferred to med surg with tele room 112. Report called to med surg nurse. Patient does not appear to be in any distress at this time. Family at bedside.
--- NOTE | 2019-10-22 21:30 | NUR ---
PATIENT RESTING IN BED BOTH EYES CLOSED, NO SIGNS OF DISTRESS NOTED. DAUGHTER IS AT BEDSIDE AND PATIENT VOICES NO PAIN AT THIS TIME. PATIENT HAS NOT VOIDED YET AFTER PEREZ WAS DISCONTINUED AT 16:00 AND THERE WAS COMPLAINTS OF CONSTIPATION. BED IS IN LOWEST POSITION, SIDE RAILS ARE UP, CALL LIGHT WITHIN EASY REACH, WILL CONTINUE TO MONITOR.
--- NOTE | 2019-10-22 22:00 | NUR ---
CALLED DR. MG REGARDING THE PATIENT'S COMPLAINTS OF CONSTIPATION. ENEMA WAS ORDERED FOR PATIENT AND WAS DECLINED BY PATIENT AND FAMILY.
--- NOTE | 2019-10-22 22:15 | NUR ---
PATIENT STILL HAS NOT VOIDED SINCE PEREZ REMOVAL AT 16:00. BLADDER SCANNED PATIENT AND HAD A READING OF 49ML. PATIENT HAS NO COMPLAINTS OF PRESSURE OR SORAIDA URGE TO URINATE. CONTINUING TO MONITOR THE SITUATION.
[2019-10-23] VITALS (8 sets, daily range): BP systolic 102–115; BP diastolic 53–68
[2019-10-23] MEDS ORDERED: FUROSEMIDE INJ 10 MG/ML 4 ML VIAL IV SCH (06:00)
[2019-10-23 06:06] LABS: BASOPHILS # (AUTO) 0.1 (0.0-0.1); BASOPHILS % 0.7 % (0.0-1.0); EOSINOPHILS # (AUTO) 0.3 (0.0-0.4); EOSINOPHILS % 3.6 % (0.0-6.0); HEMATOCRIT 23.5 % (34.2-44.1); HEMOGLOBIN 7.6 g/dL (12.0-16.0); LYMPHOCYTES # (AUTO) 1.3 (1.0-3.2); LYMPHOCYTES % 18.9 % (18.0-39.1); MEAN CORPUSCULAR HEMOGLOBIN 32.6 pg (28-32); MEAN CORPUSCULAR HGB CONC 32.3 g/dL (31-35); MEAN CORPUSCULAR VOLUME 100.9 fL (81-99); MONOCYTES # (AUTO) 0.6 (0.2-0.8); MONOCYTES % 7.9 % (4.4-11.3); NEUTROPHILS # (AUTO) 4.8 (2.1-6.9); NEUTROPHILS % 68.2 % (38.7-80.0); PLATELET COUNT 225 x10e3/uL (140-360); RED BLOOD COUNT 2.33 x10e6/uL (3.6-5.1); RED CELL DISTRIBUTION WIDTH 13.2 % (11.7-14.4)
[2019-10-23 06:25] LABS: ALBUMIN 2.8 g/dL (3.5-5.0); ALBUMIN/GLOBULIN RATIO 1.2 (0.8-2.0); ANION GAP 11.4 mmol/L (8-16); CALCIUM 9.3 mg/dL (8.4-10.2); CREATININE, SERUM 1.47 mg/dL (0.57-1.11); POTASSIUM 4.4 mmol/L (3.5-5.1)
[2019-10-23] MEDS ORDERED: FUROSEMIDE40 MG PO (06:35)
[2019-10-23] MEDS ORDERED: FAMOTIDINE20 MG PO (06:35)
[2019-10-23] MEDS ORDERED: COLACE100 MG PO (06:35)
--- NOTE | 2019-10-23 06:37 | NUR ---
D/C summary Principal Dx: NSTEMI PNA Klebsiella UTi Septic shock Secondary Dx; DM2 HTN HLD Hx Pulmonary embolism PLAN Cardio eval; Echo; will need further eval; Lovenox BID hab1c/lipids Use IV abx PT consult; AC; GI prop. 1-20 Moved to ICU due to hypotension; Hb trending down; Hba1c/LDL 5.9/56; continued renal mgmt; Septic shock - continued mgmt in ICU; cct>35mins 1-4 Hb better; Pleural effusion B/L- small; 1-5 recheck Hb this pm. Renal fn improving; 1-6 renal fn continues to improve; heart procedure pending; - reported as negative; 1-7 Klebsiella UTI treated; Check H/H. d/c planning; d/c home f/u pcp 1 week stable d/c 35mins Lucien Gant MD, PhD.
[2019-10-23] MEDS: LEVOFLOXACIN 500 MG TAB PO SCH (07:25)
[2019-10-23] MEDS: TAMSULOSIN HCL 0.4 MG CAP PO SCH ×2 (07:25→20:36)
[2019-10-23] MEDS: FUROSEMIDE 40 MG TAB PO SCH ×2 (07:25→17:22)
[2019-10-23] MEDS: INSULIN LISPRO 100 UNIT/1 ML 3ML VIAL SQ SCH ×4 (07:30→20:36)
[2019-10-23] MEDS: INSULIN REGULAR, HUMAN 100 UNIT/1 ML 3ML VIAL SQ SCH ×4 (07:30→20:17)
--- NOTE | 2019-10-23 07:34 | NUR ---
PATIENT STILL HAS NOT VOIDED AND HAS NO URGE TO GO AND FEELS NO PRESSURE. BLADDER SCAN WAS DONE AND PATIENT RETAINING 217ML, SPOKE WITH DR. MG AND HE ORDERED FLOMAX. MEDICATION WAS GIVEN ALONG WITH LASIX.
[2019-10-23] MEDS: FAMOTIDINE 20 MG TAB PO SCH ×2 (08:30→16:41)
[2019-10-23] MEDS: BALSAM PERU/CASTOR OIL 60 GM OINT...G. TP SCH (09:00)
[2019-10-23] MEDS: METOPROLOL SUCCINATE 50 MG TAB XL PO SCH (09:00)
[2019-10-23] MEDS: CLOPIDOGREL BISULFATE 75 MG TAB PO SCH (10:00)
[2019-10-23] MEDS: DOCUSATE SODIUM 100 MG CAP PO SCH ×2 (10:00→16:41)
[2019-10-23] MEDS: APIXAB 2.5 MG TABLET PO SCH ×2 (10:00→16:41)
[2019-10-23] MEDS ORDERED: ONDANSETRON HCL 4 MG ORAL DISINTEGRATING TAB PO PRN (10:30)
--- NOTE | 2019-10-23 12:35 | NUR ---
PT VOIDED, DIAPER CHANGED, REPOSITIONED, CALL LIGHT WITHIN REACH
--- NOTE | 2019-10-23 12:43 | NUR ---
REPORT TO SELINA BEATTY TAKING OVER CARE OF PT,
--- NOTE | 2019-10-23 15:26 | NUR ---
Spoke to pt at bedside. Pt states she is agreeable to a SNF, since if she goes home she will be alone for part of the day. Wants CM to call daughter for choice. CM called and spoke to pt's daughter Yohana Muñoz at [phone]. Informed her that her mom is agreeable to SNF. She stated that she didn't have time to look up facilities yesterday, but will get on it now. Will call CM back with choice.
--- NOTE | 2019-10-23 19:25 | NUR ---
Patient received sitting up in bed. Daughter at bedside. AAO x 3. Patient had no complaints of pain. Respirations even and non-labored. Safety measures in place. Patient instructed to call for assistance when needed. Call light within reach.
[2019-10-23] MEDS ORDERED: BALSAM PERU/CASTOR OIL 60 GM OINT...G. TP SCH (21:00)
--- NOTE | 2019-10-23 22:00 | NUR ---
Wound treatment performed per MD's orders. Patient tolerated well.
[2019-10-24] VITALS: BP 114/53
[2019-10-24 04:00] VITALS: BP 114/55
[2019-10-24] MEDS: FUROSEMIDE 40 MG TAB PO SCH (05:29)
[2019-10-24] MEDS: LEVOFLOXACIN 500 MG TAB PO SCH ×2 (06:10→08:57)
--- NOTE | 2019-10-24 06:54 | NUR ---
New order given by Dr. Gant to discharge patient stating patient has already been cleared by Cardiology.
--- NOTE | 2019-10-24 07:15 | NUR ---
Patient resting comfortably. Shift report given to oncoming nurse.
[2019-10-24] MEDS: INSULIN LISPRO 100 UNIT/1 ML 3ML VIAL SQ SCH ×3 (07:30→16:30)
[2019-10-24] MEDS: INSULIN REGULAR, HUMAN 100 UNIT/1 ML 3ML VIAL SQ SCH ×3 (07:30→16:30)
[2019-10-24 07:39] VITALS: BP 110/52
[2019-10-24 08:53] VITALS: BP 110/52
[2019-10-24] MEDS: CLOPIDOGREL BISULFATE 75 MG TAB PO SCH (08:56)
[2019-10-24] MEDS: TAMSULOSIN HCL 0.4 MG CAP PO SCH (08:56)
[2019-10-24] MEDS: APIXAB 2.5 MG TABLET PO SCH ×2 (08:56→18:53)
[2019-10-24] MEDS: DOCUSATE SODIUM 100 MG CAP PO SCH ×2 (08:56→18:53)
[2019-10-24] MEDS: METOPROLOL SUCCINATE 50 MG TAB XL PO SCH (08:57)
[2019-10-24] MEDS: FAMOTIDINE 20 MG TAB PO SCH ×2 (08:58→18:53)
[2019-10-24] MEDS ORDERED: FUROSEMIDE INJ 10 MG/ML 4 ML VIAL IV ONE ×2 (10:30→17:00)
--- NOTE | 2019-10-24 11:19 | NUR ---
dr. Reddy was called for pt heart rate joan between 39 and 30. spoke with thu office staff.
[2019-10-24 11:53] VITALS: BP 108/53
--- NOTE | 2019-10-24 14:20 | NUR ---
DR SAUNDERS RETURNED CALL NO ORDERS GIVEN.
[2019-10-24 16:13] VITALS: BP 98/47
[2019-10-24] MEDS ORDERED: FUROSEMIDE INJ 10 MG/ML 4 ML VIAL IV SCH (17:00)
--- NOTE | 2019-10-24 18:16 | NUR ---
REPORT GIVEN TO APOORVA AT [facility].
--- NOTE | 2019-10-24 18:41 | NUR ---
DR SAUNDERS HERE TO SEE PT.
--- NOTE | 2019-10-24 19:50 | NUR ---
REPORT GIVEN TO ONCOMING NURSE, PT STABLE.
--- NOTE | 2019-10-24 21:00 | NUR ---
Patient transported via stretcher by EMS. Patient in stable condition. Vital signs WNL.
--- NOTE | 2019-10-24 21:05 | NUR ---
Patient discharged to [facility].
--- NOTE | 2019-10-25 08:32 | NUR ---
ADDENDUM to D/C summary- STAYED IN HOSPITAL EXTRA DAY FOR PLACEMENT TO SNF Principal Dx: NSTEMI PNA Klebsiella UTi Septic shock Secondary Dx; DM2 HTN HLD Hx Pulmonary embolism PLAN Cardio eval; Echo; will need further eval; Lovenox BID hab1c/lipids Use IV abx PT consult; AC; GI prop. 1--20 Moved to ICU due to hypotension; Hb trending down; Hba1c/LDL 5.9/56; continued renal mgmt; Septic shock - continued mgmt in ICU; cct>35mins 1-4 Hb better; Pleural effusion B/L- small; 1-5 recheck Hb this pm. Renal fn improving; 1-6 renal fn continues to improve; heart procedure pending; - reported as negative; 1-7 Klebsiella UTI treated; Check H/H. d/c planning; d/c home f/u pcp 1 week stable d/c 35mins Lucien Gant MD, PhD.
--- NOTE | 2019-10-25 12:41 | NUR ---
[facility] CALLED FLOOR YESTERDAY EVENING WITH ROOM NUMBER AND PT WAS TRANSFERED MOT COMPLETED TODAY AND FAXED TO [facility] AT [facility] [phone] CONFIRMATION REC'D
--- NOTE | 2019-12-20 13:43 | Operative Report ---
DATE OF PROCEDURE: 10/21/2019 SURGEON: Arnol Cuellar MD INDICATION FOR PROCEDURE: Non-ST elevation myocardial infarction. PREPROCEDURE ASSESSMENT: The risks, benefits, and alternatives to treatment were explained to the patient prior to the procedure. The patient was deemed to be an appropriate candidate for moderate sedation. Informed consent was obtained and documented in the medical record. MEDICATIONS: Please see nursing notes for medications administered throughout the procedure. PROCEDURES PERFORMED: 1. Coronary angiography right radial approach. 2. Left heart catheterization. PROCEDURE IN DETAIL: The patient was brought to the cardiac catheterization laboratory in a fasting state. Right wrist was prepped and draped in a sterile fashion. A 6-Barbadian Slender sheath was inserted in the right radial artery using modified Seldinger technique. Coronary angiography was performed using 5-Barbadian Emilia radial catheter to engage both the left and right coronary systems. Left heart catheterization LV angiography was performed using a pigtail catheter. All catheters were removed over a wire. Multiple orthogonal views were taken of each coronary artery. Access site was closed using TR band device. There were no immediate complications. SIGNIFICANT FINDINGS: Left main large caliber, mild diffuse plaquing, no obstructive CAD, LAD, small vessel, 1.5 to 2 mm with diffuse plaquing. 1. Significant diagonal branch also 1 mm in diameter. Left circumflex small nondominant left circumflex. 2. Significant OM branches again with diffuse plaquing about 1.5 to 2 mm in diameter. OM2 is larger of the 2 OM and SECOND STEWARD in the midportion. Dominant RCA about 1.5-2 mm in diameter. Diffuse moderate plaquing in the mid and distal RCA as well as RPDA. LVEDP 22 mmHg. LV ejection fraction about 45%. LV angiography. No gradient across the aortic valve. GRAFTS AND IMPLANTS: None. SPECIMEN REMOVED: None. ESTIMATED BLOOD LOSS: 20 mL. COMPLICATIONS: None. FINAL RECOMMENDATIONS: 1. TR band. 2. Small diabetic diffusely diseased vessels. Recommend medical therapy only. Arnol Cuellar MD [facility] /[id number]
== END 2019-10-24 20:40 | DRG 280 ==
LOC: ER 20:59 → ERHOLD 22:01 → MED/SURG 23:26 → ICU 10-17 16:40 → MED/SURG 10-22 18:10 → MED/SURG2 10-23 13:00
PROVIDERS: ADMIT Internal Medicine; ATTEND Internal Medicine
PROC: 02HV33Z Insertion of Infusion Device into Superior Vena Cava, Percutaneous Approach (ICD-10-PCS; principal; 2019-10-17)
PROC: B548ZZA Ultrasonography of Superior Vena Cava, Guidance (ICD-10-PCS; 2019-10-17)
PROC: 4A023N7 Measurement of Cardiac Sampling and Pressure, Left Heart, Percutaneous Approach (ICD-10-PCS; 2019-10-21)
PROC: B2111ZZ Fluoroscopy of Multiple Coronary Arteries using Low Osmolar Contrast (ICD-10-PCS; 2019-10-21)
PROC: B2151ZZ Fluoroscopy of Left Heart using Low Osmolar Contrast (ICD-10-PCS; 2019-10-21)
DX: I21.4 Non-ST elevation (NSTEMI) myocardial infarction (principal); I50.21 Acute systolic (congestive) heart failure; J18.9 Pneumonia, unspecified organism; A41.9 Sepsis, unspecified organism; R65.21 Severe sepsis with septic shock; E87.1 Hypo-osmolality and hyponatremia; N17.9 Acute kidney failure, unspecified; N39.0 Urinary tract infection, site not specified; Z88.0 Allergy status to penicillin; Z88.8 Allergy status to other drugs, medicaments and biological substances; D50.9 Iron deficiency anemia, unspecified; E87.5 Hyperkalemia; E11.9 Type 2 diabetes mellitus without complications; R00.1 Bradycardia, unspecified; I70.209 Unspecified atherosclerosis of native arteries of extremities, unspecified extremity; N18.3 Chronic kidney disease, stage 3 (moderate); E78.5 Hyperlipidemia, unspecified; Z86.711 Personal history of pulmonary embolism; B96.1 Klebsiella pneumoniae [K. pneumoniae] as the cause of diseases classified elsewhere
CPT/HCPCS: 36415; 51700; 71045; 76770; 80048; 80053; 80061; 81001; 82270; 82550; 82553; 82570; 82728; 82948; 83036; 83540; 83605; 83735; 83880; 84100; 84132; 84156; 84466; 84484; 85007; 85014; 85018; 85025; 85027; 87086; 87186; 93005; 93306; 93458; 94640; 96372; 96374; 97139; 99152; 99284; C1887; J0610; J1650; J1817; J1940; J2001; J2250; J2405; J3010; J7030; J7050; J7799; Q9967

== ENCOUNTER 2021-01-11 17:59 | Inpatient (IN) | payer MEDICARE ==
[~2021-01-11] VITALS: Ht 167.6 cm; Wt 91.4 kg
[~2021-01-11 17:59] MED LIST changes: +COLACE100 MG PO; +ELIQUIS2.5 MG PO; +FAMOTIDINE20 MG PO; +FUROSEMIDE40 MG PO; +TRESIBA FL100 UNIT/1 SQ
[2021-01-11] MEDS ORDERED: ONDANSETRON HCL INJ 2MG/ML 2ML 2 MG/ML VIAL IV STA (20:31)
[2021-01-11 20:38] LABS: BASOPHILS # (AUTO) 0.1 (0.0-0.1); BASOPHILS % 0.5 % (0.0-1.0); EOSINOPHILS # (AUTO) 0.1 (0.0-0.4); HEMOGLOBIN 8.1 g/dL (12.0-16.0); LYMPHOCYTES # (AUTO) 0.4 (1.0-3.2); LYMPHOCYTES % 2.4 % (18.0-39.1); MEAN CORPUSCULAR HEMOGLOBIN 29.6 pg (28-32); MEAN CORPUSCULAR HGB CONC 31.2 g/dL (31-35); MEAN CORPUSCULAR VOLUME 94.9 fL (81-99); MONOCYTES # (AUTO) 0.3 (0.2-0.8); MONOCYTES % 2.1 % (4.4-11.3); NEUTROPHILS # (AUTO) 13.4 (2.1-6.9); NEUTROPHILS % 92.3 % (38.7-80.0); PLATELET COUNT 313 x10e3/uL (140-360); RED BLOOD COUNT 2.74 x10e6/uL (3.6-5.1); RED CELL DISTRIBUTION WIDTH 14.8 % (11.7-14.4)
[2021-01-11] MEDS ORDERED: SODIUM CHLORIDE 0.9% 1000ML 1,000 ML ONE (20:40)
[2021-01-11] MEDS ORDERED: ACETAMINOPHEN 325 MG TAB PO ONE (20:45)
[2021-01-11] MEDS ORDERED: SODIUM CHLORIDE 0.9% 1000ML 1,000 ML IV ONE ×3 (20:45→21:45)
[2021-01-11] MEDS ORDERED: CEFEPIME HCL 1GM 1 GM in SODIUM CHLORIDE 0.9% 50ML 50 ML IV ONE (20:45)
[2021-01-11 20:52] LABS: CLARITY,URINE TURBID (CLEAR); COLOR,URINE BROWN (YELLOW); KETONES,URINE TRACE (NEGATIVE); LEUKOCYTE ESTERASE ,URINE LARGE (NEGATIVE); NITRITE,URINE NEGATIVE (NEGATIVE); PROTEIN,URINE DIPSTICK >=300 (NEGATIVE); URINE UROBILINOGEN 2 mg/dL (0.2 - 1)
[2021-01-11 21:00] LABS: ALBUMIN 2.3 g/dL (3.5-5.0); ALBUMIN/GLOBULIN RATIO 0.6 (0.8-2.0); AMYLASE 26 U/L (25-125); ANION GAP 18.1 mmol/L (8-16); CALCIUM 9.2 mg/dL (8.4-10.2); CREATININE, SERUM 6.29 mg/dL (0.57-1.11); LIPASE 24 U/L (8-78); POTASSIUM 5.1 mmol/L (3.5-5.1)
[2021-01-11 21:04] LABS: BACTERIA,URINE MANY /HPF; WBC,URINE (MAN) 21-50 /HPF (0-5)
[2021-01-11 21:07] LABS: CREATINE KINASE MB 2.3 ng/mL (0-5.0)
[2021-01-11] MEDS ORDERED: NOREPINEPHRINE 8 MG/D5W 250 ML 250 ML IV SCH (23:15)
[2021-01-11] MEDS ORDERED: VANCOMYCIN 1GM/NS 250 ML 250 ML IV ONE (23:45)
[2021-01-12] VITALS (27 sets, daily range): BP systolic 87–131; BP diastolic 35–93
[2021-01-12] MEDS ORDERED: SODIUM CHLORIDE 0.9% 1000ML 1,000 ML IV SCH
[2021-01-12] MEDS ORDERED: ACETAMINOPHEN 325 MG TAB PO PRN (01:45)
[2021-01-12 05:37] LABS: BASOPHILS # (AUTO) 0.2 (0.0-0.1); BASOPHILS % 0.6 % (0.0-1.0); EOSINOPHILS # (AUTO) 0.1 (0.0-0.4); EOSINOPHILS % 0.2 % (0.0-6.0); HEMATOCRIT 23.6 % (34.2-44.1); HEMOGLOBIN 7.3 g/dL (12.0-16.0); LYMPHOCYTES # (AUTO) 0.8 (1.0-3.2); LYMPHOCYTES % 2.7 % (18.0-39.1); MEAN CORPUSCULAR HEMOGLOBIN 29.7 pg (28-32); MEAN CORPUSCULAR HGB CONC 30.9 g/dL (31-35); MEAN CORPUSCULAR VOLUME 95.9 fL (81-99); MONOCYTES # (AUTO) 1.4 (0.2-0.8); MONOCYTES % 4.6 % (4.4-11.3); NEUTROPHILS # (AUTO) 25.6 (2.1-6.9); NEUTROPHILS % 87.8 % (38.7-80.0); PLATELET COUNT 346 x10e3/uL (140-360); RED BLOOD COUNT 2.46 x10e6/uL (3.6-5.1)
[2021-01-12 05:54] LABS: ALBUMIN 2.1 g/dL (3.5-5.0); ALBUMIN/GLOBULIN RATIO 0.6 (0.8-2.0); ANION GAP 19.2 mmol/L (8-16); CALCIUM 8.9 mg/dL (8.4-10.2); CREATININE, SERUM 5.89 mg/dL (0.57-1.11); POTASSIUM 5.2 mmol/L (3.5-5.1)
[2021-01-12] MEDS ORDERED: AZITHROMYCIN 500MG/NS 250 ML 250 ML IV SCH (07:30)
[2021-01-12] MEDS ORDERED: DEXTROSE 50% SYRINGE 50 ML IV PRN (07:45)
[2021-01-12] MEDS: FAMOTIDINE 20 MG TAB PO SCH ×2 (07:52→16:16)
[2021-01-12] MEDS: DOCUSATE SODIUM 100 MG CAP PO SCH ×2 (07:52→16:16)
[2021-01-12] MEDS: CLOPIDOGREL BISULFATE 75 MG TAB PO SCH (07:53)
[2021-01-12 07:59] LABS: BAND NEUTROPHILS % (MANUAL) 2 %; LYMPHOCYTES % (MANUAL) 7 % (19-48); MONOCYTES % (MANUAL) 2 % (3.4-9.0); NEUTROPHILS % (MANUAL) 89 % (40-74)
[2021-01-12 08:00] LABS: PLATELET ESTIMATE ADEQUATE; PLATELET MORPHOLOGY COMMENT NORMAL; RBC MORPHOLOGY COMMENT NORMAL
[2021-01-12] MEDS ORDERED: HEPARIN SOD (PORCINE) 5,000 UNIT/ML VIAL IV NR (08:00)
[2021-01-12] MEDS ORDERED: APIXAB 2.5 MG TABLET PO SCH (09:00)
[2021-01-12 09:15] LABS: INR 1.27; PROTHROMBIN TIME 16.8 seconds (11.9-14.5)
[2021-01-12] MEDS ORDERED: SODIUM CHLORIDE 0.9% 250ML 250 ML IV ONE (10:15)
[2021-01-12] MEDS ORDERED: SODIUM BICARBONATE 8.4% INJ 50 ML SYR IV ONE (10:30)
[2021-01-12] MEDS: HEPARIN 25,000 UNIT 800 UNIT in DEXTROSE 5% 250ML 250 ML IV SCH (10:41)
[2021-01-12] MEDS: SODIUM BICARBONATE 8.4% SYRING 75 ML in DEXTROSE 5%/0.45% SOD CHL 1,000 ML IV SCH (11:14)
[2021-01-12] MEDS: INSULIN REGULAR, HUMAN 100 UNIT/1 ML 3ML VIAL SQ SCH ×3 (11:30→21:00)
[2021-01-12] MEDS: AZTREONAM 1 GM/NS 50 ML 50 ML IV SCH ×2 (13:14→22:00)
[2021-01-12] MEDS ORDERED: SERTRALINE HCL50 MG PO (13:26)
[2021-01-12] MEDS ORDERED: TRESIBA100 UNIT/1 SC (13:26)
[2021-01-12] MEDS ORDERED: COLCHICINE0.6 M1 PO (13:26)
[2021-01-12] MEDS ORDERED: LOSARTAN POTAS100 MG PO (13:26)
[2021-01-12 16:34] LABS: CREATINE KINASE MB 1.9 ng/mL (0-5.0)
[2021-01-12] MEDS ORDERED: MANNITOL 25% 12.5GM/50ML 100 ML ONE (20:10)
[2021-01-12] MEDS ORDERED: AMIODARONE 900MG 500 ML IV ONE (22:13)
[2021-01-12] MEDS: AMIODARONE HCL 900 MG in DEXTROSE 5% 500ML 500 ML IV PRN (22:15)
[2021-01-12] MEDS ORDERED: HEPARIN SOD (PORCINE) 1000 UNIT/ML SDV ONE (22:56)
[2021-01-12] MEDS ORDERED: GENTAMICIN 120MG/NS 100ML 100 ML IV STA (22:56)
[2021-01-12] MEDS: MEROPENEM 1GM 100 ML IV SCH (23:06)
[2021-01-12] MEDS ORDERED: NOREPINEPHRINE 8 MG/D5W 250 ML 250 ML IV PRN (23:45)
[2021-01-13] VITALS (43 sets, daily range): BP systolic 93–133; BP diastolic 36–86
[2021-01-13] MEDS ORDERED: SODIUM CHLORIDE 0.9% 250ML 250 ML ONE (01:10)
[2021-01-13] MEDS ORDERED: GENTAMICIN 80MG/NS 100 ML 100 ML IV ONE (02:18)
[2021-01-13] MEDS: AMIODARONE HCL 900 MG in DEXTROSE 5% 500ML 500 ML IV PRN (04:13)
[2021-01-13] MEDS ORDERED: HEPARIN SOD (PORCINE) 1000 UNIT/ML SDV IV PRN (06:30)
[2021-01-13] MEDS ORDERED: MANNITOL 25% 12.5GM/50 ML VIAL IV PRN (06:30)
[2021-01-13] MEDS ORDERED: SODIUM CHLORIDE 0.9% 1000ML 2,000 ML IV PRN (06:30)
[2021-01-13 06:43] LABS: BASOPHILS # (AUTO) 0.1 (0.0-0.1); BASOPHILS % 0.7 % (0.0-1.0); EOSINOPHILS # (AUTO) 0.1 (0.0-0.4); EOSINOPHILS % 0.5 % (0.0-6.0); HEMOGLOBIN 9.1 g/dL (12.0-16.0); LYMPHOCYTES # (AUTO) 0.8 (1.0-3.2); MEAN CORPUSCULAR HEMOGLOBIN 29.3 pg (28-32); MEAN CORPUSCULAR HGB CONC 31.4 g/dL (31-35); MEAN CORPUSCULAR VOLUME 93.2 fL (81-99); MONOCYTES # (AUTO) 1.4 (0.2-0.8); MONOCYTES % 7.4 % (4.4-11.3); NEUTROPHILS # (AUTO) 15.5 (2.1-6.9); NEUTROPHILS % 80.3 % (38.7-80.0); PLATELET COUNT 227 x10e3/uL (140-360); RED BLOOD COUNT 3.11 x10e6/uL (3.6-5.1); RED CELL DISTRIBUTION WIDTH 16.2 % (11.7-14.4)
[2021-01-13 07:05] LABS: ALBUMIN 1.8 g/dL (3.5-5.0); ALBUMIN/GLOBULIN RATIO 0.6 (0.8-2.0); ANION GAP 17.3 mmol/L (8-16); CALCIUM 8.5 mg/dL (8.4-10.2); CREATININE, SERUM 3.93 mg/dL (0.57-1.11); MAGNESIUM 1.8 MG/DL (1.3-2.1); POTASSIUM 4.3 mmol/L (3.5-5.1)
[2021-01-13] MEDS: FAMOTIDINE 20 MG TAB PO SCH (07:30)
[2021-01-13] MEDS: DOCUSATE SODIUM 100 MG CAP PO SCH ×2 (08:27→16:43)
[2021-01-13] MEDS: SODIUM BICARBONATE 8.4% SYRING 75 ML in DEXTROSE 5%/0.45% SOD CHL 1,000 ML IV SCH (08:27)
[2021-01-13] MEDS: CLOPIDOGREL BISULFATE 75 MG TAB PO SCH (08:28)
[2021-01-13 08:48] LABS: PHOSPHORUS 4.3 MG/DL (2.3-4.7)
[2021-01-13 08:50] LABS: CREATININE,URINE RANDOM 157.22 mg/dL (47-110)
[2021-01-13] MEDS: DEXTROSE 5%/0.9% SOD CHL 1,000 ML IV SCH (11:21)
[2021-01-13] MEDS ORDERED: FAMOTIDINE 20 MG/2 ML VIAL IV SCH (13:00)
[2021-01-13] MEDS: HEPARIN 25,000 UNIT 800 UNIT in DEXTROSE 5% 250ML 250 ML IV SCH (13:25)
[2021-01-13] MEDS: FAMOTIDINE 20 MG/2 ML VIAL IV SCH (13:25)
[2021-01-13] MEDS: INSULIN REGULAR, HUMAN 100 UNIT/1 ML 3ML VIAL SQ SCH ×2 (13:26→18:14)
[2021-01-14] VITALS (28 sets, daily range): BP systolic 103–170; BP diastolic 31–109
[2021-01-14] MEDS: MEROPENEM 1GM 100 ML IV SCH ×2 (00:15→23:18)
[2021-01-14] MEDS: INSULIN REGULAR, HUMAN 100 UNIT/1 ML 3ML VIAL SQ SCH ×5 (00:27→21:12)
[2021-01-14 05:00] LABS: BASOPHILS # (AUTO) 0.2 (0.0-0.1); BASOPHILS % 0.8 % (0.0-1.0); EOSINOPHILS # (AUTO) 0.2 (0.0-0.4); EOSINOPHILS % 0.8 % (0.0-6.0); HEMATOCRIT 29.7 % (34.2-44.1); HEMOGLOBIN 9.5 g/dL (12.0-16.0); LYMPHOCYTES # (AUTO) 1.2 (1.0-3.2); LYMPHOCYTES % 5.5 % (18.0-39.1); MEAN CORPUSCULAR HEMOGLOBIN 29.3 pg (28-32); MEAN CORPUSCULAR VOLUME 91.7 fL (81-99); MONOCYTES % 4.9 % (4.4-11.3); NEUTROPHILS # (AUTO) 16.8 (2.1-6.9); NEUTROPHILS % 79.5 % (38.7-80.0); PLATELET COUNT 228 x10e3/uL (140-360); RED BLOOD COUNT 3.24 x10e6/uL (3.6-5.1); RED CELL DISTRIBUTION WIDTH 16.3 % (11.7-14.4)
[2021-01-14 05:26] LABS: ALBUMIN 1.7 g/dL (3.5-5.0); ALBUMIN/GLOBULIN RATIO 0.5 (0.8-2.0); ANION GAP 13.9 mmol/L (8-16); CALCIUM 8.7 mg/dL (8.4-10.2); CREATININE, SERUM 3.07 mg/dL (0.57-1.11); MAGNESIUM 1.8 MG/DL (1.3-2.1); PHOSPHORUS 3.7 MG/DL (2.3-4.7); POTASSIUM 3.9 mmol/L (3.5-5.1)
[2021-01-14] MEDS: DEXTROSE 5%/0.9% SOD CHL 1,000 ML IV SCH (05:52)
[2021-01-14] MEDS: DOCUSATE SODIUM 100 MG CAP PO SCH ×2 (09:00→16:41)
[2021-01-14] MEDS: MIDODRINE 2.5 MG TAB PO SCH ×3 (09:00→16:41)
[2021-01-14] MEDS: CLOPIDOGREL BISULFATE 75 MG TAB PO SCH (09:00)
[2021-01-14] MEDS: FAMOTIDINE 20 MG/2 ML VIAL IV SCH (09:13)
[2021-01-14] MEDS ORDERED: ALBUMIN 25% 25GM 100ML 0.25 GM/ML BTL IV PRN (12:30)
[2021-01-14] MEDS ORDERED: HEPARIN SOD (PORCINE) 1000 UNIT/ML SDV IV PRN (12:30)
[2021-01-14] MEDS: AMIODARONE HCL 200 MG TAB PO SCH ×2 (16:42→21:20)
[2021-01-15] VITALS (27 sets, daily range): BP systolic 88–134; BP diastolic 30–92
[2021-01-15] MEDS: DEXTROSE 5%/0.9% SOD CHL 1,000 ML IV SCH ×2 (01:15→21:20)
[2021-01-15] MEDS: HEPARIN 25,000 UNIT 800 UNIT in DEXTROSE 5% 250ML 250 ML IV SCH ×3 (02:01→18:59)
[2021-01-15 05:02] LABS: BASOPHILS # (AUTO) 0.1 (0.0-0.1); BASOPHILS % 0.2 % (0.0-1.0); EOSINOPHILS # (AUTO) 0.2 (0.0-0.4); EOSINOPHILS % 0.8 % (0.0-6.0); HEMATOCRIT 32.6 % (34.2-44.1); HEMOGLOBIN 10.1 g/dL (12.0-16.0); LYMPHOCYTES % 7.2 % (18.0-39.1); MEAN CORPUSCULAR HEMOGLOBIN 29.3 pg (28-32); MEAN CORPUSCULAR VOLUME 94.5 fL (81-99); MONOCYTES # (AUTO) 1.4 (0.2-0.8); MONOCYTES % 4.9 % (4.4-11.3); NEUTROPHILS # (AUTO) 21.4 (2.1-6.9); NEUTROPHILS % 75.7 % (38.7-80.0); PLATELET COUNT 250 x10e3/uL (140-360); RED BLOOD COUNT 3.45 x10e6/uL (3.6-5.1); RED CELL DISTRIBUTION WIDTH 17.1 % (11.7-14.4)
[2021-01-15 05:37] LABS: ALBUMIN 1.8 g/dL (3.5-5.0); ALBUMIN/GLOBULIN RATIO 0.5 (0.8-2.0); ANION GAP 13.7 mmol/L (8-16); CALCIUM 8.7 mg/dL (8.4-10.2); CREATININE, SERUM 2.51 mg/dL (0.57-1.11); MAGNESIUM 1.7 MG/DL (1.3-2.1); PHOSPHORUS 3.1 MG/DL (2.3-4.7); POTASSIUM 3.7 mmol/L (3.5-5.1)
[2021-01-15] MEDS: INSULIN REGULAR, HUMAN 100 UNIT/1 ML 3ML VIAL SQ SCH ×4 (07:30→21:22)
[2021-01-15 07:34] LABS: BAND NEUTROPHILS % (MANUAL) 4 %; EOSINOPHILS % (MANUAL) 1 % (0-7); LYMPHOCYTES % (MANUAL) 8 % (19-48); METAMYELOCYTES % (MANUAL) 2 % (0-0); MONOCYTES % (MANUAL) 4 % (3.4-9.0); MYELOCYTES % (MANUAL) 1 % (0-0); NEUTROPHILS % (MANUAL) 80 % (40-74)
[2021-01-15 07:35] LABS: PLATELET ESTIMATE ADEQUATE; PLATELET MORPHOLOGY COMMENT NORMAL; RBC MORPHOLOGY COMMENT NORMAL
[2021-01-15] MEDS ORDERED: CEFTRIAXONE SOD 1 GM/50 ML BAG IV SCH (08:00)
[2021-01-15] MEDS ORDERED: DIATRIZOATE MEGL/DIATRIZOA SOD 30 ML BTL PO ONE (08:45)
[2021-01-15] MEDS: CEFTRIAXONE SOD 1 GM in SODIUM CHLORIDE 0.9% 50ML 50 ML IV SCH ×2 (09:19→21:00)
[2021-01-15] MEDS: FAMOTIDINE 20 MG/2 ML VIAL IV SCH (09:20)
[2021-01-15] MEDS: MIDODRINE 2.5 MG TAB PO SCH ×3 (09:20→16:00)
[2021-01-15] MEDS: AMIODARONE HCL 200 MG TAB PO SCH ×2 (09:20→21:20)
[2021-01-15] MEDS: CLOPIDOGREL BISULFATE 75 MG TAB PO SCH (09:20)
[2021-01-15] MEDS: DOCUSATE SODIUM 100 MG CAP PO SCH ×2 (09:20→17:00)
[2021-01-15] MEDS ORDERED: GENTAMICIN SULFATE 200 MG in SODIUM CHLORIDE 0.9% 100 ML 100 ML IV ONE (12:00)
[2021-01-15 12:26] LABS: ANION GAP 11.7 mmol/L (8-16); CALCIUM 8.2 mg/dL (8.4-10.2); CREATININE, SERUM 2.71 mg/dL (0.57-1.11); POTASSIUM 3.7 mmol/L (3.5-5.1)
[2021-01-16] VITALS (40 sets, daily range): BP systolic 86–140; BP diastolic 37–87
[2021-01-16 02:24] LABS: BASOPHILS # (AUTO) 0.1 (0.0-0.1); BASOPHILS % 0.2 % (0.0-1.0); EOSINOPHILS # (AUTO) 0.3 (0.0-0.4); EOSINOPHILS % 0.8 % (0.0-6.0); HEMATOCRIT 30.9 % (34.2-44.1); HEMOGLOBIN 9.6 g/dL (12.0-16.0); LYMPHOCYTES # (AUTO) 2.4 (1.0-3.2); LYMPHOCYTES % 7.3 % (18.0-39.1); MEAN CORPUSCULAR HEMOGLOBIN 29.2 pg (28-32); MEAN CORPUSCULAR HGB CONC 31.1 g/dL (31-35); MEAN CORPUSCULAR VOLUME 93.9 fL (81-99); MONOCYTES # (AUTO) 1.4 (0.2-0.8); MONOCYTES % 4.2 % (4.4-11.3); NEUTROPHILS # (AUTO) 25.2 (2.1-6.9); NEUTROPHILS % 76.2 % (38.7-80.0); PLATELET COUNT 304 x10e3/uL (140-360); RED BLOOD COUNT 3.29 x10e6/uL (3.6-5.1); RED CELL DISTRIBUTION WIDTH 17.1 % (11.7-14.4)
[2021-01-16 02:43] LABS: ALBUMIN 1.9 g/dL (3.5-5.0); ALBUMIN/GLOBULIN RATIO 0.5 (0.8-2.0); ANION GAP 14.6 mmol/L (8-16); CALCIUM 8.5 mg/dL (8.4-10.2); CREATININE, SERUM 3.11 mg/dL (0.57-1.11); POTASSIUM 3.6 mmol/L (3.5-5.1)
[2021-01-16] MEDS: HEPARIN 25,000 UNIT 800 UNIT in DEXTROSE 5% 250ML 250 ML IV SCH (05:01)
[2021-01-16] MEDS: INSULIN REGULAR, HUMAN 100 UNIT/1 ML 3ML VIAL SQ SCH ×4 (07:30→21:08)
[2021-01-16] MEDS: CEFTRIAXONE SOD 1 GM in SODIUM CHLORIDE 0.9% 50ML 50 ML IV SCH ×2 (08:09→20:33)
[2021-01-16] MEDS: MIDODRINE 2.5 MG TAB PO SCH (08:10)
[2021-01-16] MEDS: DOCUSATE SODIUM 100 MG CAP PO SCH ×2 (08:15→16:13)
[2021-01-16] MEDS: AMIODARONE HCL 200 MG TAB PO SCH ×2 (08:15→20:33)
[2021-01-16] MEDS: FAMOTIDINE 20 MG/2 ML VIAL IV SCH (08:15)
[2021-01-16] MEDS: CLOPIDOGREL BISULFATE 75 MG TAB PO SCH (08:15)
[2021-01-16] MEDS: MIDODRINE HCL 5 MG TABLET PO SCH ×3 (09:17→16:13)
[2021-01-16 13:19] LABS: AMYLASE 43 U/L (25-125); LIPASE 66 U/L (8-78)
[2021-01-16] MEDS: DEXTROSE 5%/0.9% SOD CHL 1,000 ML IV SCH (16:44)
[2021-01-16] MEDS: ONDANSETRON HCL INJ 2MG/ML 2ML 2 MG/ML VIAL IV PRN (21:00)
[2021-01-17] VITALS (24 sets, daily range): BP systolic 108–141; BP diastolic 41–58
[2021-01-17 05:09] LABS: BASOPHILS # (AUTO) 0.3 (0.0-0.1); BASOPHILS % 0.8 % (0.0-1.0); EOSINOPHILS # (AUTO) 0.3 (0.0-0.4); EOSINOPHILS % 0.7 % (0.0-6.0); HEMATOCRIT 27.8 % (34.2-44.1); HEMOGLOBIN 8.6 g/dL (12.0-16.0); LYMPHOCYTES # (AUTO) 2.4 (1.0-3.2); LYMPHOCYTES % 6.4 % (18.0-39.1); MEAN CORPUSCULAR HEMOGLOBIN 29.1 pg (28-32); MEAN CORPUSCULAR HGB CONC 30.9 g/dL (31-35); MEAN CORPUSCULAR VOLUME 93.9 fL (81-99); MONOCYTES # (AUTO) 1.3 (0.2-0.8); MONOCYTES % 3.4 % (4.4-11.3); NEUTROPHILS # (AUTO) 29.9 (2.1-6.9); NEUTROPHILS % 79.8 % (38.7-80.0); PLATELET COUNT 207 x10e3/uL (140-360); RED BLOOD COUNT 2.96 x10e6/uL (3.6-5.1); RED CELL DISTRIBUTION WIDTH 17.1 % (11.7-14.4)
[2021-01-17 05:43] LABS: ALBUMIN 1.8 g/dL (3.5-5.0); ALBUMIN/GLOBULIN RATIO 0.6 (0.8-2.0); CREATININE, SERUM 3.68 mg/dL (0.57-1.11)
[2021-01-17] MEDS: HEPARIN 25,000 UNIT 800 UNIT in DEXTROSE 5% 250ML 250 ML IV SCH ×3 (06:37→21:06)
[2021-01-17] MEDS: FAMOTIDINE 20 MG/2 ML VIAL IV SCH (08:05)
[2021-01-17] MEDS: MIDODRINE HCL 5 MG TABLET PO SCH ×3 (08:05→16:10)
[2021-01-17] MEDS: CEFTRIAXONE SOD 1 GM in SODIUM CHLORIDE 0.9% 50ML 50 ML IV SCH ×2 (08:05→20:16)
[2021-01-17] MEDS: AMIODARONE HCL 200 MG TAB PO SCH ×2 (08:06→21:04)
[2021-01-17] MEDS: DOCUSATE SODIUM 100 MG CAP PO SCH ×2 (08:06→16:34)
[2021-01-17] MEDS: CLOPIDOGREL BISULFATE 75 MG TAB PO SCH (08:06)
[2021-01-17] MEDS: INSULIN REGULAR, HUMAN 100 UNIT/1 ML 3ML VIAL SQ SCH ×4 (08:08→21:05)
[2021-01-17] MEDS: METRONIDAZOLE 500MG/NS 100ML 100 ML IV SCH ×2 (08:58→16:34)
[2021-01-17 09:23] LABS: BAND NEUTROPHILS % (MANUAL) 3 %; LYMPHOCYTES % (MANUAL) 7 % (19-48); MONOCYTES % (MANUAL) 2 % (3.4-9.0); NEUTROPHILS % (MANUAL) 88 % (40-74)
[2021-01-17 09:28] LABS: HYPOCHROMASIA SLIGHT; PLATELET ESTIMATE ADEQUATE
[2021-01-17 09:30] LABS: PLATELET MORPHOLOGY COMMENT NORMAL
[2021-01-17] MEDS: FLUCONAZOLE 100 MG/NS 50 ML 50 ML IV SCH (10:25)
[2021-01-18] VITALS (16 sets, daily range): BP systolic 75–133; BP diastolic 29–95
[2021-01-18] MEDS: METRONIDAZOLE 500MG/NS 100ML 100 ML IV SCH ×3 (00:43→17:43)
[2021-01-18 05:14] LABS: BASOPHILS # (AUTO) 0.2 (0.0-0.1); BASOPHILS % 0.7 % (0.0-1.0); EOSINOPHILS # (AUTO) 0.2 (0.0-0.4); EOSINOPHILS % 0.6 % (0.0-6.0); HEMATOCRIT 26.5 % (34.2-44.1); HEMOGLOBIN 8.3 g/dL (12.0-16.0); LYMPHOCYTES # (AUTO) 2.1 (1.0-3.2); LYMPHOCYTES % 6.7 % (18.0-39.1); MEAN CORPUSCULAR HEMOGLOBIN 29.4 pg (28-32); MEAN CORPUSCULAR HGB CONC 31.3 g/dL (31-35); MONOCYTES # (AUTO) 1.1 (0.2-0.8); MONOCYTES % 3.3 % (4.4-11.3); NEUTROPHILS # (AUTO) 25.8 (2.1-6.9); PLATELET COUNT 207 x10e3/uL (140-360); RED BLOOD COUNT 2.82 x10e6/uL (3.6-5.1); RED CELL DISTRIBUTION WIDTH 17.1 % (11.7-14.4)
[2021-01-18 05:37] LABS: ALBUMIN 1.8 g/dL (3.5-5.0); ALBUMIN/GLOBULIN RATIO 0.6 (0.8-2.0); CALCIUM 8.1 mg/dL (8.4-10.2); CREATININE, SERUM 3.75 mg/dL (0.57-1.11)
[2021-01-18 06:39] LABS: ANISOCYTOSIS SLIGHT; BAND NEUTROPHILS % (MANUAL) 4 %; EOSINOPHILS % (MANUAL) 1 % (0-7); LYMPHOCYTES % (MANUAL) 7 % (19-48); MONOCYTES % (MANUAL) 1 % (3.4-9.0); MYELOCYTES % (MANUAL) 1 % (0-0); NEUTROPHILS % (MANUAL) 84 % (40-74)
[2021-01-18 06:40] LABS: PLATELET ESTIMATE ADEQUATE; PLATELET MORPHOLOGY COMMENT NORMAL; RBC MORPHOLOGY COMMENT NORMAL
[2021-01-18] MEDS: INSULIN REGULAR, HUMAN 100 UNIT/1 ML 3ML VIAL SQ SCH ×4 (07:30→21:38)
[2021-01-18] MEDS: MIDODRINE HCL 5 MG TABLET PO SCH ×4 (08:00→22:00)
[2021-01-18] MEDS: CEFTRIAXONE SOD 1 GM in SODIUM CHLORIDE 0.9% 50ML 50 ML IV SCH ×2 (08:22→20:04)
[2021-01-18] MEDS: CLOPIDOGREL BISULFATE 75 MG TAB PO SCH (08:23)
[2021-01-18] MEDS: DOCUSATE SODIUM 100 MG CAP PO SCH ×2 (08:23→17:00)
[2021-01-18] MEDS: AMIODARONE HCL 200 MG TAB PO SCH ×2 (08:23→21:37)
[2021-01-18] MEDS: FAMOTIDINE 20 MG/2 ML VIAL IV SCH (08:23)
[2021-01-18] MEDS: FLUCONAZOLE 100 MG/NS 50 ML 50 ML IV SCH (09:55)
[2021-01-18] MEDS: HEPARIN 25,000 UNIT 800 UNIT in DEXTROSE 5% 250ML 250 ML IV SCH (16:32)
[2021-01-18] MEDS ORDERED: SODIUM CHLORIDE 0.9% 250ML 500 ML IV PRN (17:15)
[2021-01-18] MEDS ORDERED: HEPARIN SOD (PORCINE) 1000 UNIT/ML SDV IV PRN (17:15)
[2021-01-18] MEDS: ALBUMIN 25% 25GM 100ML 0.25 GM/ML BTL IV PRN ×2 (18:55→19:10)
[2021-01-18] MEDS ORDERED: AMIODARONE HCL 200 MG TAB ONE (20:59)
[2021-01-18] MEDS: ONDANSETRON HCL INJ 2MG/ML 2ML 2 MG/ML VIAL IV PRN (22:03)
[2021-01-18] MEDS: NOREPINEPHRINE 8 MG/D5W 250 ML 250 ML IV PRN (22:53)
[2021-01-19] VITALS (14 sets, daily range): BP systolic 65–122; BP diastolic 31–57
[2021-01-19] MEDS: METRONIDAZOLE 500MG/NS 100ML 100 ML IV SCH ×2 (00:35→08:46)
[2021-01-19 04:52] LABS: BASOPHILS # (AUTO) 0.1 (0.0-0.1); BASOPHILS % 0.1 % (0.0-1.0); EOSINOPHILS % 0.1 % (0.0-6.0); HEMATOCRIT 26.4 % (34.2-44.1); HEMOGLOBIN 7.9 g/dL (12.0-16.0); LYMPHOCYTES # (AUTO) 3.2 (1.0-3.2); LYMPHOCYTES % 6.1 % (18.0-39.1); MEAN CORPUSCULAR HEMOGLOBIN 29.6 pg (28-32); MEAN CORPUSCULAR HGB CONC 29.9 g/dL (31-35); MEAN CORPUSCULAR VOLUME 98.9 fL (81-99); MONOCYTES # (AUTO) 1.6 (0.2-0.8); MONOCYTES % 3.1 % (4.4-11.3); NEUTROPHILS # (AUTO) 41.3 (2.1-6.9); NEUTROPHILS % 78.6 % (38.7-80.0); PLATELET COUNT 263 x10e3/uL (140-360); RED BLOOD COUNT 2.67 x10e6/uL (3.6-5.1); RED CELL DISTRIBUTION WIDTH 17.8 % (11.7-14.4)
[2021-01-19 05:17] LABS: ALBUMIN 3.6 g/dL (3.5-5.0); ALBUMIN/GLOBULIN RATIO 1.4 (0.8-2.0); ANION GAP 35.2 mmol/L (8-16); CALCIUM 8.9 mg/dL (8.4-10.2); CREATININE, SERUM 2.47 mg/dL (0.57-1.11); POTASSIUM 4.2 mmol/L (3.5-5.1)
[2021-01-19] MEDS: HEPARIN 25,000 UNIT 800 UNIT in DEXTROSE 5% 250ML 250 ML IV SCH ×2 (07:11→07:15)
[2021-01-19] MEDS: INSULIN REGULAR, HUMAN 100 UNIT/1 ML 3ML VIAL SQ SCH ×2 (07:27→11:30)
[2021-01-19] MEDS ORDERED: SODIUM CHLORIDE 0.9% 500ML 500 ML IV ONE ×2 (08:15→10:30)
[2021-01-19 08:45] LABS: BAND NEUTROPHILS % (MANUAL) 2 %; LYMPHOCYTES % (MANUAL) 5 % (19-48); METAMYELOCYTES % (MANUAL) 1 % (0-0); MONOCYTES % (MANUAL) 1 % (3.4-9.0); NEUTROPHILS % (MANUAL) 90 % (40-74)
[2021-01-19] MEDS: FAMOTIDINE 20 MG/2 ML VIAL IV SCH (08:46)
[2021-01-19] MEDS: DOCUSATE SODIUM 100 MG CAP PO SCH (08:59)
[2021-01-19] MEDS: CLOPIDOGREL BISULFATE 75 MG TAB PO SCH (08:59)
[2021-01-19] MEDS ORDERED: MEROPENEM 500MG/ NS 50ML 50 ML IV SCH (09:00)
[2021-01-19] MEDS ORDERED: VANCOMYCIN 1GM/NS 250 ML 250 ML IV ONE (09:45)
[2021-01-19] MEDS: NOREPINEPHRINE 8 MG/D5W 250 ML 250 ML IV PRN (11:46)
[2021-01-19] MEDS: MIDODRINE HCL 5 MG TABLET PO SCH (12:00)
[2021-01-19] MEDS ORDERED: VASOPRESSIN 60 UNIT in DEXTROSE 5% 50ML 57 ML IV PRN (12:30)
== END 2021-01-19 17:58 | disposition expired | DRG 871 ==
LOC: ER 19:34 → ERHOLD 01-12 00:14 → ICU 01-12 01:07
PROVIDERS: ADMIT Internal Medicine; ATTEND Internal Medicine
PROC: 02HV33Z Insertion of Infusion Device into Superior Vena Cava, Percutaneous Approach (ICD-10-PCS; principal; 2021-01-11)
PROC: 5A1D70Z Performance of Urinary Filtration, Intermittent, Less than 6 Hours Per Day (ICD-10-PCS; 2021-01-12)
PROC: 30243N1 Transfusion of Nonautologous Red Blood Cells into Central Vein, Percutaneous Approach (ICD-10-PCS; 2021-01-12)
DX: A41.51 Sepsis due to Escherichia coli [E. coli] (principal); R65.21 Severe sepsis with septic shock; N18.6 End stage renal disease; N17.0 Acute kidney failure with tubular necrosis; I21.A1 Myocardial infarction type 2; E87.2 Acidosis; E87.1 Hypo-osmolality and hyponatremia; N39.0 Urinary tract infection, site not specified; J90 Pleural effusion, not elsewhere classified; N12 Tubulo-interstitial nephritis, not specified as acute or chronic; I13.2 Hypertensive heart and chronic kidney disease with heart failure and with stage 5 chronic kidney disease, or end stage renal disease; I50.42 Chronic combined systolic (congestive) and diastolic (congestive) heart failure; I48.0 Paroxysmal atrial fibrillation; E11.51 Type 2 diabetes mellitus with diabetic peripheral angiopathy without gangrene; E87.5 Hyperkalemia; E11.22 Type 2 diabetes mellitus with diabetic chronic kidney disease; Z79.899 Other long term (current) drug therapy; Z86.711 Personal history of pulmonary embolism; Z79.01 Long term (current) use of anticoagulants; I25.2 Old myocardial infarction; Z89.431 Acquired absence of right foot; E11.40 Type 2 diabetes mellitus with diabetic neuropathy, unspecified; K57.90 Diverticulosis of intestine, part unspecified, without perforation or abscess without bleeding; E66.9 Obesity, unspecified; Z68.31 Body mass index [BMI] 31.0-31.9, adult; D63.8 Anemia in other chronic diseases classified elsewhere; I25.10 Atherosclerotic heart disease of native coronary artery without angina pectoris; K75.89 Other specified inflammatory liver diseases; K82.8 Other specified diseases of gallbladder; Z66 Do not resuscitate
CPT/HCPCS: 36415; 51700; 70450; 71045; 74176; 76700; 76770; 80048; 80053; 81001; 82150; 82550; 82553; 82570; 82948; 83605; 83690; 83735; 83880; 84100; 84300; 84484; 85025; 85610; 85730; 86704; 86850; 86900; 86920; 87040; 87071; 87086; 87186; 87205; 87340; 90962; 93005; 93971; 96366; 96372; 99251; 99284; J0456; J0692; J0696; J1450; J1580; J1644; J1817; J2150; J2405; J3370; J7030; J7040; J7042; J7050; J7060; J7799; P9016; P9047; U0002